=== PATIENT | female | born 1935 | race Caucasian/White ===

== ENCOUNTER 2018-04-29 14:57 | Inpatient (IN) | payer OTHER ==
[~2018-04-29] VITALS: Ht 170.2 cm; Wt 96.0 kg
--- NOTE | ~2018-04-29 | HC ---
[facility] [place] [address] CONSULTATION Name: WILLIAN BRIGGS MARCH Room #: 227-P ADM IN M.R.#: [id number] Admission: 04/29/18 Attend Phys: Zachary Salamanca MD Discharge: Date of : 35 Report #: [id number] THIS REPORT FOR: //name// CC: Mike Ruiz MD [facility] Yoni Geiger DO Dr. Vladimir Salamanca MD REASON FOR CONSULTATION: Thrombocytosis. HISTORY OF PRESENT ILLNESS: The patient is an 82-year-old female who says she has not been aware of high platelet counts before. I did have a chance to talk to Dr. Yoni Geiger. He also does not recall platelet count being high, but he will call me. He did mention that almost every time he sees her, she has inflammatory condition taking place. In look at the [facility] lab, her platelets have been abnormal every measure since July 2009 of greater than 487,000 except for once on 12/23/2011. More recently, the last several years they have been more in the range of 500-700. At this time on admit was 679,000 on the , then 581,000 on the and 467,000 on the . The patient denies any history of unusual bleeding or clotting. She did mention in asking, she had a heart attack at age 70, had stents placed. No family history of clots. The patient was admitted for gastroenteritis with several day onset of abdominal pain and maybe fever. It sounds like here she is also thought to have a urinary tract infection, possible pneumonia. PAST MEDICAL HISTORY: Notable for a diagnosis of hyperlipidemia, renal insufficiency, coronary artery disease with stents by the patient's report. Also, chronic back pain. Also, possible emphysema. Also, history of syncope recently. MEDICATIONS: Here in the hospital currently include duloxetine 60 mg daily, aspirin 81 mg daily, metoprolol 50 daily, atorvastatin 20 mg daily, ipratropium albuterol 3 mL respiratory q.i.d., levothyroxine 100 mcg daily, metronidazole q.8 hours IV, hydralazine p.r.n., heparin 5000 units b.i.d. subQ, hydrocodone p.r.n., morphine p.r.n., ciprofloxacin b.i.d. LABORATORY DATA: Here as mentioned has BUN of 23, creatinine of 1.4. Liver functions normal. White count currently 10.6, hemoglobin 12.8, MCV 96.7, platelet count 467. Differential had an ANC of 13,600. Vitamin B12 894. Vitamin D 25-hydroxy pending. UA had squamous cells, but also many bacteria. Microbiology so far is negative. RADIOLOGIC STUDIES: Include CT abdomen and pelvis showing surgical changes of appendectomy, cholecystectomy, hysterectomy and lumbar spine fusion, no evidence of bowel obstruction or free air. Mild prominence that may represent mild ileus [address] [address] CONSULTATION Name: WILLIAN BRIGGS MARCH Room #: 227-P [facility] IN M.R.#: [id number] Admission: 04/29/18 Attend Phys: Zachary Salamanca MD Discharge: Date of : 35 Report #: [id number] or enteritis and small colonic diverticula without inflammation. PHYSICAL EXAMINATION: VITAL SIGNS: Height is 5 feet 7 inches, 170.2 cm. Weight 211.7 pounds or 96 kilograms. Blood pressure is 209/96 this morning. O2 sat 93, respirations 18, pulse 90, temperature 99.4. MOOD: The patient is alert and pleasant. NEUROLOGIC: She may be a little bit hard of hearing. Speech and thought pattern appear to be normal. Face is symmetrical. LUNGS: Appear to have symmetric expansion, may be some soft rhonchi that clear after a cough. HEART: Appears regular rate. LYMPHATICS: No enlarged lymph nodes in the supraclavicular, cervical, axillary, inguinal region. ABDOMEN: Obese, slightly tender consistent with gastroenteritis. EXTREMITIES: Without clubbing, cyanosis. There is some trace edema. SKIN: Warm and intact. ASSESSMENT AND PLAN: 1. Thrombocytosis more likely reactive. We will check lab from Dr. Geiger's office. If that is also elevated without recent low or normal range, we will consider checking JAK2 mutation. The patient is on aspirin. 2. Gastroenteritis. Continue antibiotics and meds per others. 3. Hypothyroid, replace. 4. Coronary artery disease: Aspirin, metoprolol. 5. Hyperlipidemia: Atorvastatin. 6. Mood and back pain: Duloxetine and hydrocodone, p.r.n. morphine. We will follow. <ELECTRONICALLY SIGNED> By: Ranjan Villagran MD 05/03/18 0831 0840 1239 Ranjan Villagran MD /nt
[~2018-04-29 14:57] MED LIST: ACETAMINOPHEN-1 EAC1; ACETAMINOPHEN-1 EAC1 PO; ACETAMINOPHEN650 M5 PO; ADVAIR HFA 230M12 GM INH; ALBUTEROL INH INH; AMITRIPTYLINE H25 M2 PO; AMITRIPTYLINE H25 M3 PO; ASPIR 8181 MG PO; ASPIRIN325 PO; ATROVENT HFA14 GM; BIOTIN-D1 GM PO; BIOTIN1 GM; BIOTIN1 MG PO; BIOTIN2500 MCG PO; CALCIUM 600 +1 EAC1; CALCIUM 600 +1 EAC1 PO; CEFDINIR300 MG PO; CEFTIN 250 MG250 MG PO; CIPRO PO; CIPRO250 M1 PO; CITRATE OF MAG296 ML PO; CLARITIN10 M2 PO; COLACE100 MG PO; CYMBALTA60 MG PO; DEXILANT60 MG PO; GUIATUSS100 MG/5 M PO; HYDROCHLOROTHIA25 M2 PO; HYDROCODONE-APA1 TA1 PO; HYZAAR 100-12.1 EACH PO; IRBESARTAN300 MG PO; LEVOTHYROXIN0.075 MG PO; LEVOTHYROXINE0.05 MG PO; LOPRESSOR100 MG PO; LOSARTAN-HCTZ1 EAC2 PO; MEDROLDOSEPACK PO; METOCLOPRAMIDE 55 MG PO; MINIPRIN81 MG PO; MOBIC7.5 MG PO; MUCINEX TA600 MG/TA2 PO; NORCO 7.5-3251 EACH PO; NORVASC2.5 M1 PO; ONDANSETRON HCL4 M2 PO; PRAVACHOL20 MG PO; PREDNISONE 20 M20 M1; PRILOSEC 20 MG20 MG PO; PROTONIX40 M1 PO; PROXICAM PO; RANITIDINE PO; TOPROL XL100 MG PO; TOPROL XL50 MG PO; ULTRAM 50MG TAB50 MG PO; VENTOLIN HFA 1818 GM INH; VITAMINC500 PO; VITCB500GO PO
[2018-04-29 14:58] VITALS: BP 147/78
[2018-04-29 15:30] LABS: ABSOLUTE NEUTROPHILS 13.6 thou/uL (1.4-8.2); BASOPHILS 0.6 % (0.0-2.0); EOSINOPHILS 0.1 % (0.0-3.0); HEMATOCRIT 45.9 % (37.0-47.0); HEMOGLOBIN 15.4 gm/dL (12.0-15.0); LYMPHOCYTES 15.1 % (24.0-44.0); MCHC 33.5 g/dL (28.0-37.0); MCV 95.5 fL (80.0-100.0); MONOCYTES 7.4 % (1.0-8.0); PLATELET COUNT 679 thou/uL (150-400); POLYS 76.8 % (36.0-66.0); RBC 4.81 mil/uL (4.20-5.00); RDW 14.5 % (10.5-14.5); WBC 17.7 thou/uL (4.0-11.0)
[2018-04-29 15:39] LABS: CALCIUM 9.4 mg/dL (8.5-10.1); CREATININE 1.9 mg/dL (0.6-1.0); POTASSIUM 3.9 mmol/L (3.5-5.1)
[2018-04-29 15:53] LABS: ALBUMIN 4.1 g/dL (3.4-5.0); TOTAL BILIRUBIN 0.7 mg/dL (<0.1-1.0); TOTAL PROTEIN 7.7 g/dL (6.4-8.2)
[2018-04-29] MEDS ORDERED: FLONASE 0.05%50 MCG NASAL (17:52)
[2018-04-29] MEDS ORDERED: SYNTHROID50 MCG PO (17:55)
[2018-04-29] MEDS ORDERED: ASPIR 8181 MG PO (17:59)
[2018-04-29] MEDS ORDERED: BIOTIN1000 MCG PO (18:00)
[2018-04-29] MEDS ORDERED: DUONEB 2.5-0.5 M3 ML INH (18:02)
[2018-04-29 18:07] VITALS: BP 189/95
[2018-04-29 18:40] VITALS: BP 215/111
[2018-04-29 18:55] VITALS: BP 225/116
[2018-04-29 20:34] VITALS: BP 208/94
[2018-04-29 22:37] VITALS: BP 160/79
[2018-04-30 00:37] VITALS: BP 150/66
[2018-04-30 04:28] VITALS: BP 126/69
[2018-04-30 06:13] LABS: HEMATOCRIT 40.1 % (37.0-47.0); HEMOGLOBIN 13.5 gm/dL (12.0-15.0); MCH 32.1 pg (26.0-34.0); MCHC 33.6 g/dL (28.0-37.0); MCV 95.7 fL (80.0-100.0); RBC 4.19 mil/uL (4.20-5.00); RDW 14.4 % (10.5-14.5); WBC 16.1 thou/uL (4.0-11.0)
[2018-04-30 06:26] LABS: CALCIUM 8.6 mg/dL (8.5-10.1); CREATININE 1.6 mg/dL (0.6-1.0); POTASSIUM 3.9 mmol/L (3.5-5.1)
[2018-04-30 08:00] VITALS: BP 144/61
[2018-04-30 14:50] VITALS: BP 102/71
[2018-04-30 15:07] LABS: URINE BILIRUBIN NEGATIVE (Negative); URINE BLOOD 1+ (Negative); URINE CLARITY CLEAR; URINE COLOR YELLOW; URINE GLUCOSE-RANDOM* NEGATIVE (Negative); URINE KETONES TRACE (Negative); URINE PROTEIN (DIPSTICK) 1+ (Negative); URINE SPECIFIC GRAVITY 1.025 (1.005-1.035); URINE UROBILINOGEN 0.2 E.U./dl (0.2-1.0)
[2018-04-30 15:10] LABS: URINE LEUKOCYTES-REFLEX 2+ (Negative); URINE NITRITE-REFLEX POSITIVE (Negative)
[2018-04-30 15:15] LABS: CRYSTALS None Seen /LPF (None Seen); FINE GRANULAR CASTS 0-3 Few /LPF (None Seen); SQUAMOUS >10 Many /LPF (0-3); URINE RBC 3-10 Few /HPF (0-2); URINE WBC-REFLEX >25 Many /HPF (0-5)
[2018-04-30 15:56] VITALS: BP 128/39
[2018-04-30 20:45] VITALS: BP 138/70
[2018-05-01 05:36] VITALS: BP 202/95
[2018-05-01 05:52] LABS: HEMATOCRIT 39.2 % (37.0-47.0); HEMOGLOBIN 12.8 gm/dL (12.0-15.0); MCH 31.5 pg (26.0-34.0); MCHC 32.6 g/dL (28.0-37.0); MCV 96.7 fL (80.0-100.0); RBC 4.05 mil/uL (4.20-5.00); RDW 14.4 % (10.5-14.5); WBC 10.6 thou/uL (4.0-11.0)
[2018-05-01 05:57] LABS: CALCIUM 8.6 mg/dL (8.5-10.1); CREATININE 1.4 mg/dL (0.6-1.0); POTASSIUM 4.2 mmol/L (3.5-5.1)
[2018-05-01 08:00] VITALS: BP 200/80
[2018-05-01 15:35] VITALS: BP 139/85
[2018-05-01 20:09] VITALS: BP 207/88
[2018-05-02] VITALS (8 sets, daily range): BP systolic 117–209; BP diastolic 54–98
[2018-05-03 08:21] LABS: HEMATOCRIT 38.1 % (37.0-47.0); HEMOGLOBIN 12.9 gm/dL (12.0-15.0); MCH 32.1 pg (26.0-34.0); MCHC 33.8 g/dL (28.0-37.0); MCV 95.1 fL (80.0-100.0); RBC 4.01 mil/uL (4.20-5.00); RDW 14.4 % (10.5-14.5); WBC 10.9 thou/uL (4.0-11.0)
[2018-05-03 08:29] LABS: CALCIUM 8.6 mg/dL (8.5-10.1); CREATININE 1.2 mg/dL (0.6-1.0); POTASSIUM 3.7 mmol/L (3.5-5.1)
[2018-05-03 08:30] VITALS: BP 160/67
[2018-05-03 20:00] VITALS: BP 167/71
[2018-05-04 07:50] VITALS: BP 187/181
[2018-05-04 07:55] LABS: HEMATOCRIT 39.8 % (37.0-47.0); HEMOGLOBIN 13.3 gm/dL (12.0-15.0); MCH 31.5 pg (26.0-34.0); MCHC 33.3 g/dL (28.0-37.0); MCV 94.5 fL (80.0-100.0); RBC 4.21 mil/uL (4.20-5.00); RDW 14.4 % (10.5-14.5); WBC 15.9 thou/uL (4.0-11.0)
[2018-05-04 08:08] LABS: ALBUMIN 3.5 g/dL (3.4-5.0); CALCIUM 8.9 mg/dL (8.5-10.1); CREATININE 1.2 mg/dL (0.6-1.0); POTASSIUM 3.5 mmol/L (3.5-5.1); TOTAL BILIRUBIN 0.4 mg/dL (<0.1-1.0); TOTAL PROTEIN 6.4 g/dL (6.4-8.2)
[2018-05-04 20:00] VITALS: BP 153/68
[2018-05-05 07:35] VITALS: BP 169/83
[2018-05-05 20:15] VITALS: BP 168/80
[2018-05-05 21:53] VITALS: BP 184/85
[2018-05-05 23:02] VITALS: BP 130/72
[2018-05-06 08:14] VITALS: BP 134/73
[2018-05-06 10:44] VITALS: BP 134/73
[2018-05-06 20:17] VITALS: BP 124/73
[2018-05-07 07:55] VITALS: BP 171/77
[2018-05-07 07:58] VITALS: BP 171/77
[2018-05-07 12:40] LABS: HEMATOCRIT 38.7 % (37.0-47.0); HEMOGLOBIN 13.2 gm/dL (12.0-15.0); MCH 32.2 pg (26.0-34.0); MCHC 34.1 g/dL (28.0-37.0); MCV 94.3 fL (80.0-100.0); RBC 4.11 mil/uL (4.20-5.00); RDW 14.5 % (10.5-14.5); WBC 12.6 thou/uL (4.0-11.0)
[2018-05-07] MEDS ORDERED: MIRALAX17 GM PO (14:55)
[2018-05-07] MEDS ORDERED: FLAGYL500 MG PO (14:59)
[2018-05-07] MEDS ORDERED: CIPRO500 MG PO (14:59)
[2018-05-07] MEDS ORDERED: ZOFRAN ODT4 MG PO (15:00)
== END 2018-05-07 18:48 | disposition home health service (06) | DRG 871 ==
LOC: ER 14:57 → EROBS 17:15 → 4W 17:15 → SICU 05-02 16:08 → ENTRNSPT 05-07 18:25 → SICU 05-07 18:48
PROVIDERS: Emergency Medicine; Hospitalist; Internal Medicine Gastroenterology
DX: A41.9 Sepsis, unspecified organism (principal); N17.0 Acute kidney failure with tubular necrosis; N39.0 Urinary tract infection, site not specified; E46 Unspecified protein-calorie malnutrition; K52.9 Noninfective gastroenteritis and colitis, unspecified; Z88.8 Allergy status to other drugs, medicaments and biological substances; Z88.2 Allergy status to sulfonamides; G89.4 Chronic pain syndrome; I10 Essential (primary) hypertension; E78.5 Hyperlipidemia, unspecified; F11.90 Opioid use, unspecified, uncomplicated; D47.3 Essential (hemorrhagic) thrombocythemia; K21.9 Gastro-esophageal reflux disease without esophagitis; Z96.653 Presence of artificial knee joint, bilateral; E03.9 Hypothyroidism, unspecified; I25.10 Atherosclerotic heart disease of native coronary artery without angina pectoris; Z95.5 Presence of coronary angioplasty implant and graft; Z90.49 Acquired absence of other specified parts of digestive tract; Z87.01 Personal history of pneumonia (recurrent)
CPT/HCPCS: 10040; 15002

== ENCOUNTER 2018-05-19 08:49 | Inpatient (IN) | payer OTHER ==
[~2018-05-19] VITALS: Ht 170.2 cm; Wt 90.7 kg
--- NOTE | ~2018-05-19 | PATH ---
[facility] [place] [address] PATHOLOGY RPT PROCEDURE Name: WILLIAN BRIGGS MARCH Room #: 225-P DIS IN M.R.#: [id number] Admission: 05/19/18 Date of : 35 Discharge: 05/25/18 Report #: [id number] Path Case #: [id number] [facility] Accession Number: [id number] . 01 Material submitted: . BX OF GASTRITIS R/O H PYLORI . 01 Clinical history: . Pre-op diagnosis: N/V, history of duodenal ulcer Post-op diagnosis: Duodenal ulcer, gastritis R/O H. pylori . 02 Diagnosis: BX of gastritis, rule out H. pylori. - Mild chronic inactive gastritis with reactive change. - An H. pylori immunostain is negative (block A1; appropriately reactive control). . (MAP:[facility]; 05/27/2018) [facility]/05/27/2018 . 02 Electronically signed: . Waldo Rivas MD, Pathologist NPI- [id number] . 01 Gross description: . The specimen is received in formalin, labeled "Willian Ray, biopsy of gastritis, R/O H. pylori". Received are three segments pale mcconnell soft tissue ranging in size from 0.4 to 0.9 cm in maximum dimensions. The specimen is submitted entirely in cassette A1. ([facility]; 05/26/2018) QAC/QAC . 02 Pathologist provided ICD-10: K29.50 . 02 CPT . 066520, G48781 Performed at: 01 [facility] [address] [place] [id number] MD Margarito Vital MD Phone: [phone] Performed at: 02 [facility] [address] [id number] MD Itz Howard MD Phone: [phone]
--- NOTE | ~2018-05-19 | P ---
[facility] [place] [address] PROCEDURE REPORT Name: WILLIAN BRIGGS Room #: 225-P [facility] IN M.R.#: [id number] Admission: 05/19/18 Attend Phys: Carlos Lozano MD Discharge: 05/25/18 Date of : 35 Report #: [id number] THIS REPORT FOR: //name// CC: Yoni Lozano MD DATE OF SERVICE: 05/24/2018 PROCEDURE PERFORMED: Upper endoscopy with biopsies. HISTORY OF PRESENT ILLNESS: The patient is an 82-year-old female who was admitted with nausea, vomiting, abdominal pain, constipation. She does take narcotics on a regular basis. She has had a previous history of peptic ulcer disease. She has been on a PPI at home, but also on meloxicam as well as aspirin. Plan is for upper endoscopy. She denies any bleeding. DESCRIPTION OF PROCEDURE: The risks and benefits of the procedure were explained to the patient, those risks including, but not limited to bleeding, perforation, the risk of sedation. She understood these risks and gave informed consent. Sedation was given using propofol per anesthesia. Next, using a standard Olympus upper endoscope, the scope was placed in the patient's mouth and advanced under direct vision through the esophagus, stomach and into the second portion of the duodenum. The larynx was normal in appearance. The upper esophagus was normal. In the mid and distal esophagus, grade C erosive esophagitis was noted. No evidence of bleeding. There was a moderate to significant diffuse gastritis noted throughout the stomach. Biopsies were obtained. One of the biopsy sites continued to bleed. Therefore, a single Endo clip was placed. No further bleeding was noted. The pylorus was normal and patent. In the duodenal bulb, a 1.5 cm clean white-based ulcer was noted. No evidence of bleeding, no visible vessel. The first and second portions of the duodenum showed mild to moderate duodenitis. No evidence of bleeding. No other ulcers were noted. The scope was then withdrawn and the procedure terminated. The patient tolerated the procedure well. IMPRESSION: 1. Grade C erosive esophagitis. 2. Moderate to significant diffuse gastritis. 3. Duodenal bulb ulcer with duodenitis. RECOMMENDATIONS: 1. Await biopsy results. 2. We will change PPI therapy to b.i.d. We will add liquid Carafate at this time. 3. We will discontinue aspirin. [address] [address] PROCEDURE REPORT Name: WILLIAN BRIGGS MARCH Room #: 225-P DIS IN M.R.#: [id number] Admission: 05/19/18 Attend Phys: Carlos Lozano MD Discharge: 05/25/18 Date of : 35 Report #: [id number] Thank you for allowing me to participate in her care. <ELECTRONICALLY SIGNED> By: Ander Hatfield MD 05/26/18 1417 1112 1823 Ander Hatfield MD /rosalina
--- NOTE | ~2018-05-19 | EKG ---
[place] [address] [place] [address] ELECTROCARDIOGRAM REPORT Name: WILLIAN BRIGGS [id number] Admission: 05/19/18 Attend Phys: Discharge: Date of : 35 Report #: [id number] THIS REPORT FOR: //name// [facility] ED Test Date: 2018-05-19 Test Time: 09:35:02 Pat Name: WILLIAN BRIGGS Department: Room: Gender: F Rn First Assistant: violeta : 1935 Requested By: Reshma Zuluaga Order Number: [id number] MD: Mike Ruiz Measurements Intervals [place] Rate: 95 P: 67 ME: 166 QRS: 39 QRSD: 82 T: 68 QT: 368 QTc: 463 Interpretive Statements Sinus rhythm Atrial premature complex Abnormal R-wave progression, early transition Compared to ECG 05/03/2015 23:45:35 Atrial premature complex(es) now present Electronically Signed On 05-19-2018 10:07:24 CDT by Mike Ruiz [email or web address] <ELECTRONICALLY SIGNED> By: Mike Ruiz MD, [facility] 05/19/18 1007 0935 4 Mike Ruiz MD, FACC /EPI
--- NOTE | ~2018-05-19 | HC ---
[facility] [place] [address] CONSULTATION Name: WILLIAN BRIGGS Room #: 421-P ADM IN M.R.#: [id number] Admission: 05/19/18 Attend Phys: Carlos Lozano MD Discharge: Date of : 35 Report #: [id number] THIS REPORT FOR: //name// CC: Yoni Geiger DO Carlos Lozano MD REASON FOR CONSULTATION: Thrombocytosis. HISTORY OF PRESENT ILLNESS: The patient is an 82-year-old female who I had first met about a month ago when she was admitted for abdominal pain and diarrhea. During that time, she had had a platelet count of around between 500,000 and 700,000. We were not sure if this was reactive or not. Since that admission, had seen Dr. Yoni Geiger as an outpatient. The patient has had persistent platelet counts as an outpatient at 500,000-700,000 range for the past 2-3 years . We have been making arrangements to have a JAK2 mutation test as an outpatient. The patient not made it to the office. She is readmitted. We will have that drawn again today. The patient had been doing a little bit better over the last couple of days, but then maybe had a UTI, gone to a doctor, had an antibiotic and has now been having abdominal cramping and belly pain again. Her platelet counts at this time are 494,000. They were 680,000 yesterday. I discussed with the patient we will go ahead and ask for the JAK2 mutation test to be drawn. I do not see any signs of any thrombosis, clots or unusual bleeding on her lab tests or her exam or her imaging. She is on aspirin. At this time, I do not think it is urgent that we begin a cytoreductive agent, but we will check a JAK2 mutation. PAST MEDICAL HISTORY: Notable for the history of hyperlipidemia, renal insufficiency, coronary artery disease with stents per the patient's report, chronic back pain, possible emphysema, hypothyroidism. MEDICATIONS: At this time in the hospital currently include cholecalciferol 2000 units daily, aspirin 81 mg daily, duloxetine 60 mg daily, metoprolol 50 mg daily, lactobacillus acidophilus 1 cap daily, levothyroxine 100 mcg daily, pantoprazole 40 mg daily, fluticasone 2 sprays each naris b.i.d., atorvastatin calcium 10 mg at bedtime, heparin 5000 units b.i.d., docusate 100 mg b.i.d., MiraLax 17 grams b.i.d., insulin on a sliding scale, ipratropium and albuterol 3 mL respiratory therapy q.i.d., tramadol p.r.n., fentanyl p.r.n. PHYSICAL EXAMINATION: GENERAL: The patient appears her stated age. VITAL SIGNS: Height is 5 feet 7 inches, 170.2 cm; weight is 200 pounds or 90.72 kilograms. Blood pressure is 157/72 with O2 sat of 96%, respirations 18, pulse 100, temperature afebrile at 98.7. 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 NEUROLOGIC: Face appears symmetrical. She is moving extremities. Speech and thought pattern appear to be normal, though somewhat slow related to being tired. LUNGS: Appear to be clear with symmetric respiratory excursion without rhonchi, rales or wheezes. HEART: Regular rate. SKIN: Warm and dry. ABDOMEN: Slightly obese, minimally uncomfortable with the exam. LYMPHATICS: No enlarged lymph nodes in the supraclavicular, cervical, axillary or inguinal region. IMAGING: Recent CAT scan of abdomen and pelvis shows no acute findings, no hepatosplenomegaly or lymphadenopathy. ASSESSMENT AND PLAN: 1. Thrombocytosis, has been elevated above the 500 and in the 700 range occasionally for the last 2 years, both in and outpatient. We will arrange for JAK2 mutation. No sign of clotting or bleeding at this time. The patient is on aspirin 81 mg. 2. Abdominal pain and nausea. Defer to others. 3. Hypothyroid, replaced. 4. Coronary artery disease, per others. 5. Hyperlipidemia, statins. 6. Mood, Cymbalta. 7. Renal insufficiency. Watch medications. We will follow along and await JAK2 mutation test results. <ELECTRONICALLY SIGNED> By: Ranjan Villagran MD 05/21/18 0842 0718 0813 Ranjan Villagran MD /nt
[~2018-05-19 08:49] MED LIST changes: +BIOTIN1000 MCG PO; +CIPRO500 MG PO; +DUONEB 2.5-0.5 M3 ML INH; +FLAGYL500 MG PO; +FLONASE 0.05%50 MCG NASAL; +MIRALAX17 GM PO; +SYNTHROID50 MCG PO; +ZOFRAN ODT4 MG PO
[2018-05-19 08:50] VITALS: BP 160/98
[2018-05-19 09:12] LABS: ABSOLUTE NEUTROPHILS 9.9 thou/uL (1.4-8.2); BASOPHILS 1.1 % (0.0-2.0); EOSINOPHILS 0.7 % (0.0-3.0); HEMATOCRIT 47.5 % (37.0-47.0); HEMOGLOBIN 15.9 gm/dL (12.0-15.0); LYMPHOCYTES 23.5 % (24.0-44.0); MCH 31.9 pg (26.0-34.0); MCHC 33.6 g/dL (28.0-37.0); MCV 95.1 fL (80.0-100.0); MONOCYTES 7.2 % (1.0-8.0); PLATELET COUNT 680 thou/uL (150-400); POLYS 67.5 % (36.0-66.0); RBC 4.99 mil/uL (4.20-5.00); RDW 14.5 % (10.5-14.5); WBC 14.7 thou/uL (4.0-11.0)
[2018-05-19 09:25] LABS: ANION GAP 8 mmol/L (7-16); BUN 28 mg/dL (7-18); CALCIUM 9.5 mg/dL (8.5-10.1); CHLORIDE 98 mmol/L (98-107); CO2 28 mmol/L (21-32); CREATININE 1.6 mg/dL (0.6-1.0); GLUCOSE 177 mg/dL (74-106); POTASSIUM 3.9 mmol/L (3.5-5.1); SODIUM 134 mmol/L (136-145)
[2018-05-19 09:34] LABS: SGOT 43 U/L (15-37); SGPT 39 U/L (30-65); TOTAL BILIRUBIN 0.7 mg/dL (<0.1-1.0); TOTAL PROTEIN 7.5 g/dL (6.4-8.2); TROPONIN-I <0.06 ng/mL (<0.06)
[2018-05-19 10:35] LABS: URINE BILIRUBIN 1+ (Negative); URINE BLOOD 2+ (Negative); URINE CLARITY CLEAR; URINE GLUCOSE-RANDOM* NEGATIVE (Negative); URINE KETONES 1+ (Negative); URINE PROTEIN (DIPSTICK) 1+ (Negative); URINE SPECIFIC GRAVITY >= 1.030 (1.005-1.035)
[2018-05-19 10:45] LABS: ICTOTEST (BILI CONFIRMATORY) Positive (Negative); URINE COLOR DARK YELLOW; URINE LEUKOCYTES-REFLEX 1+ (Negative); URINE NITRITE-REFLEX POSITIVE (Negative)
[2018-05-19 11:21] LABS: SQUAMOUS 4-10 Moderate /LPF (0-3)
[2018-05-19 11:22] LABS: BACTERIA-REFLEX 1-9 Few /HPF (None Seen); CASTS None Seen /LPF (None Seen); CRYSTALS None Seen /LPF (None Seen); URINE RBC 3-10 Few /HPF (0-2)
[2018-05-19 11:36] VITALS: BP 155/85
[2018-05-19 12:01] VITALS: BP 182/90
[2018-05-19] MEDS ORDERED: MACROBID 100 M100 M1 PO (14:27)
[2018-05-19] MEDS ORDERED: HYDROCODON-ACE1 EAC8 PO (14:27)
[2018-05-19] MEDS ORDERED: MOBIC7.5 MG PO (14:28)
[2018-05-19] MEDS ORDERED: DICLOFENAC SOD100 GM TOP (14:28)
[2018-05-19] MEDS ORDERED: OMEPRAZOLE 20 M20 M1 PO (14:29)
[2018-05-19 19:30] VITALS: BP 148/88
[2018-05-20 00:06] LABS: GLYCOHEMOGLOBIN (HGB A1C) 6.1 % (4.8-5.6)
[2018-05-20 03:52] VITALS: BP 198/84
[2018-05-20 05:30] VITALS: BP 157/72
[2018-05-20 06:13] LABS: ABSOLUTE NEUTROPHILS 8.1 thou/uL (1.4-8.2); BASOPHILS 0.5 % (0.0-2.0); EOSINOPHILS 0.7 % (0.0-3.0); MCH 31.9 pg (26.0-34.0); MCHC 33.5 g/dL (28.0-37.0); MCV 95.2 fL (80.0-100.0); MONOCYTES 7.5 % (1.0-8.0); POLYS 71.3 % (36.0-66.0); RBC 4.31 mil/uL (4.20-5.00); RDW 14.5 % (10.5-14.5); WBC 11.3 thou/uL (4.0-11.0)
[2018-05-20 06:14] LABS: HEMOGLOBIN 13.8 gm/dL (12.0-15.0); PLATELET COUNT 494 thou/uL (150-400)
[2018-05-20 06:36] LABS: CREATININE 1.3 mg/dL (0.6-1.0); POTASSIUM 3.3 mmol/L (3.5-5.1)
[2018-05-20 07:45] VITALS: BP 170/73
[2018-05-20 10:31] VITALS: BP 174/76
[2018-05-20 15:20] VITALS: BP 148/78
[2018-05-20 20:35] VITALS: BP 129/56
[2018-05-21 05:23] VITALS: BP 165/85
[2018-05-21 05:33] LABS: HEMATOCRIT 40.9 % (37.0-47.0); HEMOGLOBIN 13.4 gm/dL (12.0-15.0); MCH 31.3 pg (26.0-34.0); MCHC 32.8 g/dL (28.0-37.0); MCV 95.5 fL (80.0-100.0); RBC 4.28 mil/uL (4.20-5.00); RDW 14.5 % (10.5-14.5); WBC 9.2 thou/uL (4.0-11.0)
[2018-05-21 05:39] LABS: CALCIUM 8.7 mg/dL (8.5-10.1); CREATININE 1.3 mg/dL (0.6-1.0); POTASSIUM 3.9 mmol/L (3.5-5.1)
[2018-05-21 07:52] VITALS: BP 177/74
[2018-05-21 15:10] VITALS: BP 161/67
[2018-05-21 19:44] VITALS: BP 142/65
[2018-05-22 05:14] VITALS: BP 166/84
[2018-05-22 05:58] LABS: CALCIUM 8.4 mg/dL (8.5-10.1); CREATININE 1.1 mg/dL (0.6-1.0); POTASSIUM 3.8 mmol/L (3.5-5.1)
[2018-05-22 07:20] VITALS: BP 187/89
[2018-05-22 15:33] VITALS: BP 124/50
[2018-05-22 20:00] VITALS: BP 137/68
[2018-05-23 03:39] VITALS: BP 146/80
[2018-05-23 07:57] VITALS: BP 149/77
[2018-05-23 15:29] VITALS: BP 149/77
[2018-05-23 16:50] VITALS: BP 154/71
[2018-05-23 20:44] VITALS: BP 149/66
[2018-05-24 05:51] VITALS: BP 133/58
[2018-05-24 20:00] VITALS: BP 147/73
[2018-05-25 07:25] VITALS: BP 166/72
[2018-05-25 09:01] VITALS: BP 166/72
[2018-05-25 10:51] LABS: HEMATOCRIT 39.5 % (37.0-47.0); HEMOGLOBIN 13.6 gm/dL (12.0-15.0); MCH 32.1 pg (26.0-34.0); MCHC 34.4 g/dL (28.0-37.0); MCV 93.2 fL (80.0-100.0); RBC 4.24 mil/uL (4.20-5.00); RDW 14.4 % (10.5-14.5); WBC 7.2 thou/uL (4.0-11.0)
[2018-05-25] MEDS ORDERED: AUGMENTIN 875-1 EACH PO (12:06)
== END 2018-05-25 16:01 | disposition home health service (06) | DRG 871 ==
LOC: ER 08:49 → 4E 10:36 → EROBS 10:36 → 4E 12:02 → SICU 05-24 16:02
PROVIDERS: Hospitalist; Internal Medicine Geriatric Medicine; Internal Medicine Hematology & Oncology; Nurse Practitioner; Nurse Practitioner Family
PROC: 0DB68ZX Excision of Stomach, Via Natural or Artificial Opening Endoscopic, Diagnostic (ICD-10-PCS; principal; 2018-05-24)
DX: A41.9 Sepsis, unspecified organism (principal); N17.0 Acute kidney failure with tubular necrosis; N39.0 Urinary tract infection, site not specified; K22.10 Ulcer of esophagus without bleeding; E78.00 Pure hypercholesterolemia, unspecified; M19.90 Unspecified osteoarthritis, unspecified site; Z96.653 Presence of artificial knee joint, bilateral; N18.9 Chronic kidney disease, unspecified; E86.0 Dehydration; K29.70 Gastritis, unspecified, without bleeding; K26.9 Duodenal ulcer, unspecified as acute or chronic, without hemorrhage or perforation; K29.80 Duodenitis without bleeding; E55.9 Vitamin D deficiency, unspecified; I16.0 Hypertensive urgency; D47.3 Essential (hemorrhagic) thrombocythemia; E78.5 Hyperlipidemia, unspecified; I25.10 Atherosclerotic heart disease of native coronary artery without angina pectoris; I12.9 Hypertensive chronic kidney disease with stage 1 through stage 4 chronic kidney disease, or unspecified chronic kidney disease; K21.9 Gastro-esophageal reflux disease without esophagitis; G89.29 Other chronic pain; M54.9 Dorsalgia, unspecified; J45.909 Unspecified asthma, uncomplicated; E03.9 Hypothyroidism, unspecified; F39 Unspecified mood [affective] disorder; Z90.49 Acquired absence of other specified parts of digestive tract; Z95.5 Presence of coronary angioplasty implant and graft; Z88.1 Allergy status to other antibiotic agents; Z88.2 Allergy status to sulfonamides; Z88.8 Allergy status to other drugs, medicaments and biological substances
CPT/HCPCS: 10183; 15002; 70005

== ENCOUNTER 2018-06-02 11:15 | Inpatient (IN) | payer OTHER ==
[~2018-06-02] VITALS: Ht 170.2 cm; Wt 90.7 kg
--- NOTE | ~2018-06-02 | EKG ---
[place] [address] [facility] [place] [address] ELECTROCARDIOGRAM REPORT Name: WILLIAN BRIGGS Room #: 170-5 ADM IN M.R.#: [id number] Admission: 06/02/18 Attend Phys: Nahun Forbes MD Discharge: Date of : 35 Report #: [id number] THIS REPORT FOR: //name// [facility] ED Test Date: 2018-06-02 Test Time: 11:20:30 Pat Name: WILLIAN BRIGGS Department: Room: Gender: F [employer]bin [employer] Finder: GREGORIO : 1935 Requested By: Tracy Alvarez Order Number: [id number] MD: Mike Ruiz Measurements Intervals [place] Rate: 99 P: 69 ND: 159 QRS: 40 QRSD: 93 T: 62 QT: 353 QTc: 453 Interpretive Statements Sinus tachycardia Atrial premature complex Compared to ECG 05/19/2018 09:35:02 Heart rate has increased Electronically Signed On 06-02-2018 15:38:02 CDT by Mike Ruiz [email or web address] <ELECTRONICALLY SIGNED> By: Mike Ruiz MD, [facility] 06/02/18 1538 1120 1120 Mike Ruiz MD, FACC /EPI
[~2018-06-02 11:15] MED LIST changes: +AUGMENTIN 875-1 EACH PO; +DICLOFENAC SOD100 GM TOP; +HYDROCODON-ACE1 EAC8 PO; +MACROBID 100 M100 M1 PO; +OMEPRAZOLE 20 M20 M1 PO
[2018-06-02 11:16] VITALS: BP 175/95
[2018-06-02 11:29] LABS: BASOPHILS 0.9 % (0.0-2.0); EOSINOPHILS 0.1 % (0.0-3.0); HEMATOCRIT 45.6 % (37.0-47.0); HEMOGLOBIN 15.4 gm/dL (12.0-15.0); LYMPHOCYTES 23.2 % (24.0-44.0); MCHC 33.8 g/dL (28.0-37.0); MCV 94.5 fL (80.0-100.0); MONOCYTES 5.5 % (1.0-8.0); PLATELET COUNT 626 thou/uL (150-400); POLYS 70.3 % (36.0-66.0); RBC 4.82 mil/uL (4.20-5.00); RDW 14.4 % (10.5-14.5); WBC 12.7 thou/uL (4.0-11.0)
[2018-06-02 11:40] LABS: ANION GAP 10 mmol/L (7-16); BUN 26 mg/dL (7-18); CALCIUM 9.5 mg/dL (8.5-10.1); CHLORIDE 99 mmol/L (98-107); CO2 26 mmol/L (21-32); CREATININE 1.3 mg/dL (0.6-1.0); GLUCOSE 179 mg/dL (74-106); POTASSIUM 4.6 mmol/L (3.5-5.1); SODIUM 135 mmol/L (136-145)
[2018-06-02 11:51] LABS: URINE BILIRUBIN NEGATIVE (Negative); URINE BLOOD NEGATIVE (Negative); URINE CLARITY CLEAR; URINE COLOR YELLOW; URINE GLUCOSE-RANDOM* NEGATIVE (Negative); URINE KETONES NEGATIVE (Negative); URINE LEUKOCYTES NEGATIVE (Negative); URINE NITRITE NEGATIVE (Negative); URINE PROTEIN (DIPSTICK) TRACE (Negative); URINE UROBILINOGEN 0.2 E.U./dl (0.2-1.0)
[2018-06-02 11:54] LABS: ALBUMIN 3.9 g/dL (3.4-5.0); DIRECT BILIRUBIN 0.1 mg/dL (<0.1-0.3); LIPASE 41 U/L (73-393); SGOT 54 U/L (15-37); SGPT 68 U/L (30-65); TOTAL BILIRUBIN 0.6 mg/dL (<0.1-1.0); TOTAL PROTEIN 7.6 g/dL (6.4-8.2); TROPONIN-I <0.06 ng/mL (<0.06)
[2018-06-02 16:29] VITALS: BP 160/74
[2018-06-02 21:16] VITALS: BP 186/100
[2018-06-02 21:27] VITALS: BP 188/67
[2018-06-03 00:11] VITALS: BP 196/93
[2018-06-03 03:40] VITALS: BP 169/87
[2018-06-03 05:27] LABS: CALCIUM 8.7 mg/dL (8.5-10.1); CREATININE 1.1 mg/dL (0.6-1.0); POTASSIUM 3.9 mmol/L (3.5-5.1)
[2018-06-03 05:57] LABS: HEMATOCRIT 38.1 % (37.0-47.0); MCH 31.7 pg (26.0-34.0); MCHC 33.6 g/dL (28.0-37.0); MCV 94.5 fL (80.0-100.0); RBC 4.03 mil/uL (4.20-5.00); RDW 14.3 % (10.5-14.5)
[2018-06-03 06:02] LABS: HEMOGLOBIN 12.8 gm/dL (12.0-15.0)
[2018-06-03 08:00] VITALS: BP 151/70
[2018-06-03 15:55] VITALS: BP 184/113
[2018-06-03 20:20] VITALS: BP 181/88
[2018-06-03 21:37] VITALS: BP 174/81
[2018-06-04 07:25] LABS: ABSOLUTE NEUTROPHILS 4.6 thou/uL (1.4-8.2); EOSINOPHILS 2.6 % (0.0-3.0); HEMATOCRIT 37.1 % (37.0-47.0); HEMOGLOBIN 12.7 gm/dL (12.0-15.0); LYMPHOCYTES 27.6 % (24.0-44.0); MCH 32.3 pg (26.0-34.0); MCHC 34.1 g/dL (28.0-37.0); MCV 94.6 fL (80.0-100.0); MONOCYTES 9.8 % (1.0-8.0); PLATELET COUNT 389 thou/uL (150-400); RBC 3.92 mil/uL (4.20-5.00); RDW 14.3 % (10.5-14.5); WBC 7.9 thou/uL (4.0-11.0)
[2018-06-04 07:35] VITALS: BP 168/90
[2018-06-04 07:38] LABS: CALCIUM 8.4 mg/dL (8.5-10.1); CREATININE 1.1 mg/dL (0.6-1.0)
[2018-06-04 11:08] LABS: GLYCOHEMOGLOBIN (HGB A1C) 6.2 % (4.8-5.6)
[2018-06-04 19:35] VITALS: BP 157/83
[2018-06-05 07:17] LABS: ABSOLUTE NEUTROPHILS 3.9 thou/uL (1.4-8.2); BASOPHILS 0.8 % (0.0-2.0); EOSINOPHILS 3.4 % (0.0-3.0); HEMATOCRIT 37.4 % (37.0-47.0); HEMOGLOBIN 12.6 gm/dL (12.0-15.0); LYMPHOCYTES 34.6 % (24.0-44.0); MCH 31.8 pg (26.0-34.0); MCHC 33.8 g/dL (28.0-37.0); MCV 94.1 fL (80.0-100.0); MONOCYTES 10.6 % (1.0-8.0); PLATELET COUNT 384 thou/uL (150-400); POLYS 50.6 % (36.0-66.0); RBC 3.98 mil/uL (4.20-5.00); RDW 13.9 % (10.5-14.5); WBC 7.7 thou/uL (4.0-11.0)
[2018-06-05 07:30] VITALS: BP 152/92
[2018-06-05 07:33] LABS: ALBUMIN 3.1 g/dL (3.4-5.0); CALCIUM 8.4 mg/dL (8.5-10.1); CREATININE 1.2 mg/dL (0.6-1.0); TOTAL BILIRUBIN 0.5 mg/dL (<0.1-1.0); TOTAL PROTEIN 5.5 g/dL (6.4-8.2)
[2018-06-05 11:36] VITALS: BP 152/92
[2018-06-05 14:32] VITALS: BP 152/92
[2018-06-05] MEDS ORDERED: PANTOPRAZOLE SO40 M1 PO (15:45)
[2018-06-05] MEDS ORDERED: REGLAN 10 MG TA10 MG PO (15:46)
== END 2018-06-05 18:45 | disposition home or self-care (01) | DRG 392 ==
LOC: ER 11:15 → EROBS 11:59 → 4W 11:59 → SICU 06-03 19:52 → ENTRNSPT 06-05 18:16 → SICU 06-05 18:45
PROVIDERS: Emergency Medicine; Hospitalist; Nurse Practitioner Family
DX: K31.84 Gastroparesis (principal); E44.0 Moderate protein-calorie malnutrition; K20.9 Esophagitis, unspecified; E78.00 Pure hypercholesterolemia, unspecified; M19.90 Unspecified osteoarthritis, unspecified site; Z96.653 Presence of artificial knee joint, bilateral; J45.909 Unspecified asthma, uncomplicated; I10 Essential (primary) hypertension; K21.9 Gastro-esophageal reflux disease without esophagitis; K29.70 Gastritis, unspecified, without bleeding; I16.0 Hypertensive urgency; E78.5 Hyperlipidemia, unspecified; E03.9 Hypothyroidism, unspecified; E86.0 Dehydration; D47.3 Essential (hemorrhagic) thrombocythemia; I25.10 Atherosclerotic heart disease of native coronary artery without angina pectoris; G89.29 Other chronic pain; M54.9 Dorsalgia, unspecified; R73.9 Hyperglycemia, unspecified; K59.09 Other constipation; Z87.11 Personal history of peptic ulcer disease; Z68.31 Body mass index [BMI] 31.0-31.9, adult; Z95.5 Presence of coronary angioplasty implant and graft; Z90.49 Acquired absence of other specified parts of digestive tract; Z88.1 Allergy status to other antibiotic agents; Z88.2 Allergy status to sulfonamides; Z88.8 Allergy status to other drugs, medicaments and biological substances; Z79.899 Other long term (current) drug therapy
CPT/HCPCS: 10040; 15000

== ENCOUNTER 2018-08-21 10:10 | Inpatient (IN) | payer OTHER ==
[~2018-08-21] VITALS: Ht 170.2 cm; Wt 91.1 kg
--- NOTE | ~2018-08-21 | HC ---
[facility] [place] [address] CONSULTATION Name: WILLIAN BRIGGS Room #: 212-P ADM IN M.R.#: [id number] Admission: 08/21/18 Attend Phys: Peterson Alexander MD Discharge: Date of : 35 Report #: [id number] THIS REPORT FOR: //name// CC: Peterson Geiger DATE OF SERVICE: 08/24/2018 HISTORY OF PRESENT ILLNESS: This is an 83-year-old female patient who was evaluated by me for headache. The history is not very clear. She said she used to have migraine headaches. They became better. About 16 months ago, she started having headache. She described has headache and in the occipital area. It is predominantly on the left side. It comes for a sharp second and then she has a residual headache, which is almost continuous. Although the history is not very clear from the record, she is pretty certain that these symptoms are going on for about 16 months. REVIEW OF SYSTEMS: She is actually admitted with nausea, vomiting. Her nausea and vomiting was intractable. She does have slightly raised platelet. She was functional before she came to the hospital. She said she was able to take care of her activities of daily living. She is admitted with bacteremia. She is being followed by ID for that. She had a knee replacement in the past. She had multiple back surgeries in the past. She had hysterectomy in the past. She had coronary artery stents put in. I carried out the 14-point review of system and this was a relevant 14-point review of system. She is not complaining of any ophthalmological, ENT, cardiac or respiratory symptoms. She had a pretty profound GI symptoms. She does appear to have symptoms. She has a pretty significant musculoskeletal history. She did have some constitutional symptom. She did not have any dermatological, hematological, psychiatric, throat, allergic symptom associated with present symptomatology. PAST MEDICAL HISTORY: Positive for migraine headaches, which used to become better with Imitrex. FAMILY HISTORY: Negative for early age stroke. SOCIAL HISTORY: As described above. She was living at home and she was functional before she came. PHYSICAL EXAMINATION: NEUROLOGY: Indicates she is alert, she is responsive, she can follow simple commands, she is oriented. Her speech, concentration, fund of knowledge and memory is at her baseline. Cranial nerve examination 2-12 is unremarkable. I could not look at the patient's fundus. She moves all 4 extremities. Strength, sensation, reflexes, and tone is symmetrical. I do not see any meningeal sign. NECK: She has no thyroid mass. [address] [address] CONSULTATION Name: WILLIAN BRIGGS MARCH Room #: 212-P [facility] IN M.R.#: [id number] Admission: 08/21/18 Attend Phys: Peterson Alexander MD Discharge: Date of : 35 Report #: [id number] EXTREMITIES: Pulses are somewhat difficult to feel. She has no edema, cyanosis or jaundice. LUNGS: She does not have any respiratory difficulty or any marked rhonchi on either side. CARDIAC: Appears unremarkable. VITAL SIGNS: Blood pressure is 139/68, respiration is 18, pulse is 50, and temperature is 97.6. Her GFR is low at 43. IMPRESSION: The patient's clinical presentation is consistent with occipital neuralgia. It is difficult to tell for sure about how long these symptoms are going on. The patient insists it is several months, but there is no documentation in that regard. RECOMMENDATION: 1. We would like to give her a trial with either gabapentin or Tegretol. 2. I would like to talk to you before we give that trial because there may be some anticholinergic effect with that. 3. She needs a CT or an MRI. MRI cannot be done today. We will get the CT done and probably get the MRI done tomorrow IF it does not show any acute changes. Her history is not very clear. It is not sure whether these symptoms are really going on for a few months, but she is pretty adamant that is what the case is, but since it is not certain, we will get a CAT scan done today and get an MRI done tomorrow. I discussed all of it with the patient in detail. I discussed her option in that regard and she wants to follow this plan. Thank you very much for this referral. <ELECTRONICALLY SIGNED> By: Tito Suazo MD 08/26/18 1659 1608 0242 Tito Suazo MD /nt
--- NOTE | ~2018-08-21 | HC ---
[facility] [place] [address] CONSULTATION Name: WILLIAN BRIGGS Room #: 212-P [facility] IN M.R.#: [id number] Admission: 08/21/18 Attend Phys: Peterson Alexander MD Discharge: Date of : 35 Report #: [id number] THIS REPORT FOR: //name// CC: Peterson Geiger DATE OF SERVICE: 08/22/2018 CONSULTATION REQUESTED BY: Peterson Alexander MD. REASON FOR CONSULTATION: Bacteremia. HISTORY OF PRESENT ILLNESS: An 83-year-old white woman who is admitted through the Emergency Room with a history of a stomach pain and emesis multiple times. The patient is known to have gastroparesis with significant delayed gastric emptying. The patient's urinalysis on admission compatible with urinary tract infections. Her workup included a couple of blood cultures and both of those showed gram-positive cocci. On account of that, an Infectious Disease opinion is requested. At present, the patient is mainly complaining of epigastric pain and nausea, which she blames to the breakfast she just ate since it was extremely good. PAST MEDICAL HISTORY: Pneumonia. Total knee replacement, both knees; status post cholecystectomy; appendectomy; hysterectomy and bilateral oophorectomy. History of coronary artery stents. Gastroesophageal reflux. DRUG ALLERGIES: PHENOTHIAZINES, SULFA, PROCHLORPERAZINE AND TETRACYCLINE. MEDICATIONS: She is on vancomycin 500 mg IV every 12 hours, Rocephin 1 gram IV daily, also receiving treatment with losartan, pantoprazole, enoxaparin, metoprolol, hydralazine p.r.n., hydrocodone p.r.n., ondansetron p.r.n., normal saline intravenously. SOCIAL HISTORY: See H and P, old records. FAMILY HISTORY: See H and P, old records. REVIEW OF SYSTEMS: As above and see H and P. PHYSICAL EXAMINATION: GENERAL: Well-developed, overweight woman, not toxic looking, afebrile since admission. VITAL SIGNS: Temperature 97.8, pulse 71, respirations 20, BP 169/70, height 5 feet 7 inches, weight 190 to 103 pounds. We had all those choices. HEENMT: Head normocephalic, atraumatic. Pupils reactive, question conjunctival icterus. Mouth, missing teeth, carious teeth. [address] [address] CONSULTATION Name: WILLIAN BRIGGS MARCH Room #: 212-P ADM IN M.R.#: [id number] Admission: 08/21/18 Attend Phys: Peterson Alexander MD Discharge: Date of : 35 Report #: [id number] NECK: Supple, no thyromegaly. BREASTS: Deferred. LUNGS: Clear to auscultation. HEART: S1, S2. No gallop or murmur. ABDOMEN: With multiple surgical scars, soft, tenderness in epigastric area. PELVIC AND RECTAL: Deferred. EXTREMITIES: Revealed surgical scars to both knees from previous knee replacement. NEUROLOGIC: Grossly within normal limits. LABORATORY DATA: Sodium 135, potassium 4.1, BUN 28, creatinine 1.3, glucose 99 today, was 201 yesterday, alkaline phosphatase 143. Liver enzymes otherwise normal. WBC elevated at 17,300 on admission and hemoglobin 15.3 g/dL with an elevated platelet count of 652,000 and the white blood cell count differential revealed 76% segmented neutrophils, 16% lymphocytes. The white blood cell count goes down to 11,600 today and the hemoglobin drops to 12.4 g/dL, so that is the platelet count that dropped to 479,000. TSH normal. Urinalysis revealed elevated specific gravity greater than 1.030, pH 6, 1+ protein, 2+ blood, positive nitrite. Microscopic exam of the urine revealed pyuria, bacteriuria. MICROBIOLOGY DATA: Two out of 2 blood cultures obtained yesterday with 2 different venous sticks revealed gram-positive cocci compatible with Staphylococcus. The urine culture is still pending. RADIOLOGY EVALUATION: CT scan of the abdomen and pelvis revealed status post cholecystectomy. The distal small bowel fluid filled without evidence of obstruction. Numerous colonic diverticula with no evidence of obstruction or abscess formation. The uterus and ovaries are surgically absent. ASSESSMENT: 1. Gram-positive cocci bacteremia, undetermined source. 2. Question urinary tract infection. 3. Leukocytosis, improved. 4. Dehydration, improved. 5. Azotemia, improved. 6. History of gastroparesis. 7. Coronary artery disease, status post coronary artery stenting. 8. Status post bilateral total knee replacement, cholecystectomy, appendectomy, history of salpingo-oophorectomy. SUGGESTIONS: Recommend while awaiting culture results, we will continue coverage with Rocephin for possible UTI and obviously, the vancomycin will cover a gram-positive cocci isolated in blood culture, have to entertain possibility of MRSA. We will obtain C-reactive protein, ESR, procalcitonin and repeat blood cultures [facility] [address] [place] [address] CONSULTATION Name: WILLIAN BRIGGS Room #: 212-P ADM IN M.R.#: [id number] Admission: 08/21/18 Attend Phys: Peterson Alexander MD Discharge: Date of : 35 Report #: [id number] Alexander, thank you for requesting my suggestion. <ELECTRONICALLY SIGNED> By: Alex Frey MD 08/23/18 0736 1147 56 Alex Frey MD /nt
--- NOTE | ~2018-08-21 | EKG ---
[address] [address] ELECTROCARDIOGRAM REPORT Name: WILLIAN BRIGGS MARCH Room #: 212-P ADM IN M.R.#: [id number] Admission: 08/21/18 Attend Phys: Peterson Alexander MD Discharge: Date of : 35 Report #: [id number] THIS REPORT FOR: //name// [facility] ED Test Date: 2018-08-21 Test Time: 10:30:04 Pat Name: WILLIAN BRIGGS Department: Room: 212 Gender: F Courtroom Deputy: MELIZA : 1935 Requested By: Don Gatica Order Number: [id number] MD: Isauro Frey Measurements Intervals [place] Rate: 100 P: 85 NV: 158 QRS: 60 QRSD: 80 T: 74 QT: 358 QTc: 462 Interpretive Statements Sinus tachycardia Multiform ventricular premature complexes Consider right atrial enlargement Abnormal R-wave progression, early transition Compared to ECG 06/02/2018 11:20:30 Ventricular premature complex(es) now present Atrial premature complex(es) no longer present Electronically Signed On 08-21-2018 17:02:40 CDT by Isauro Frey [email or web address] <ELECTRONICALLY SIGNED> By: Isauro Frey MD 08/21/18 1702 1030 1030 Isauro Frey MD /EPI
[~2018-08-21 10:10] MED LIST changes: +PANTOPRAZOLE SO40 M1 PO; +REGLAN 10 MG TA10 MG PO
[2018-08-21 10:18] VITALS: BP 170/27
[2018-08-21 10:49] LABS: ABSOLUTE NEUTROPHILS 13.1 thou/uL (1.4-8.2); HEMATOCRIT 43.9 % (37.0-47.0); HEMOGLOBIN 15.3 gm/dL (12.0-15.0); LYMPHOCYTES 16.9 % (24.0-44.0); MCH 32.5 pg (26.0-34.0); MCHC 34.9 g/dL (28.0-37.0); MCV 93.1 fL (80.0-100.0); MONOCYTES 6.1 % (1.0-8.0); PLATELET COUNT 652 thou/uL (150-400); RBC 4.72 mil/uL (4.20-5.00); WBC 17.3 thou/uL (4.0-11.0)
[2018-08-21 11:01] LABS: ANION GAP 15 mmol/L (7-16); BUN 29 mg/dL (7-18); CALCIUM 9.7 mg/dL (8.5-10.1); CHLORIDE 97 mmol/L (98-107); CO2 21 mmol/L (21-32); CREATININE 1.5 mg/dL (0.6-1.0); GLUCOSE 201 mg/dL (74-106); POTASSIUM 3.9 mmol/L (3.5-5.1); SODIUM 133 mmol/L (136-145)
[2018-08-21] MEDS ORDERED: MOBIC7.5 MG PO (11:07)
[2018-08-21] MEDS ORDERED: OMEPRAZOLE 20 M20 M1 PO (11:08)
[2018-08-21] MEDS ORDERED: VITAMIN B-12500 MCG PO (11:08)
[2018-08-21 11:10] LABS: LIPASE 51 U/L (73-393); SGOT 28 U/L (15-37); SGPT 31 U/L (30-65); TOTAL BILIRUBIN 0.9 mg/dL (<0.1-1.0); TOTAL PROTEIN 7.9 g/dL (6.4-8.2); TROPONIN-I <0.06 ng/mL (<0.06)
[2018-08-21 11:34] LABS: URINE BILIRUBIN NEGATIVE (Negative); URINE BLOOD 2+ (Negative); URINE CLARITY CLOUDY; URINE COLOR YELLOW; URINE GLUCOSE-RANDOM* NEGATIVE (Negative); URINE KETONES 1+ (Negative); URINE LEUKOCYTES-REFLEX 1+ (Negative); URINE NITRITE-REFLEX POSITIVE (Negative); URINE PROTEIN (DIPSTICK) 1+ (Negative); URINE SPECIFIC GRAVITY >= 1.030 (1.005-1.035); URINE UROBILINOGEN 0.2 E.U./dl (0.2-1.0)
[2018-08-21 11:49] LABS: BACTERIA-REFLEX >30 Many /HPF (None Seen)
[2018-08-21 11:50] LABS: CASTS None Seen /LPF (None Seen); CRYSTALS None Seen /LPF (None Seen); SQUAMOUS None Seen /LPF (0-3); URINE RBC 0-2 Rare /HPF (0-2); URINE WBC-REFLEX 6-15 Few /HPF (0-5)
[2018-08-21 12:27] VITALS: BP 188/88
[2018-08-21 13:13] VITALS: BP 168/82
[2018-08-21 15:28] VITALS: BP 184/92
[2018-08-21 19:15] VITALS: BP 140/50
[2018-08-22] VITALS (7 sets, daily range): BP systolic 129–182; BP diastolic 51–74
[2018-08-22 05:01] LABS: CALCIUM 8.8 mg/dL (8.5-10.1); CREATININE 1.3 mg/dL (0.6-1.0); POTASSIUM 4.1 mmol/L (3.5-5.1)
[2018-08-22 05:28] LABS: HEMATOCRIT 37.6 % (37.0-47.0); MCH 31.2 pg (26.0-34.0); MCV 94.8 fL (80.0-100.0); RBC 3.97 mil/uL (4.20-5.00); RDW 14.1 % (10.5-14.5); WBC 11.6 thou/uL (4.0-11.0)
[2018-08-22 05:29] LABS: HEMOGLOBIN 12.4 gm/dL (12.0-15.0)
[2018-08-23 05:11] VITALS: BP 171/64
[2018-08-23 07:06] LABS: ABSOLUTE NEUTROPHILS 6.3 thou/uL (1.4-8.2); BASOPHILS 1.4 % (0.0-2.0); EOSINOPHILS 2.7 % (0.0-3.0); HEMATOCRIT 40.7 % (37.0-47.0); HEMOGLOBIN 13.6 gm/dL (12.0-15.0); LYMPHOCYTES 33.6 % (24.0-44.0); MCH 31.8 pg (26.0-34.0); MCHC 33.4 g/dL (28.0-37.0); MCV 95.2 fL (80.0-100.0); MONOCYTES 8.9 % (1.0-8.0); POLYS 53.4 % (36.0-66.0); RBC 4.28 mil/uL (4.20-5.00); RDW 14.8 % (10.5-14.5); WBC 12.7 thou/uL (4.0-11.0)
[2018-08-23 07:07] LABS: PLATELET COUNT 393 thou/uL (150-400)
[2018-08-23 07:39] LABS: CALCIUM 8.5 mg/dL (8.5-10.1)
[2018-08-23 08:00] VITALS: BP 194/78
[2018-08-23 12:00] VITALS: BP 192/76
[2018-08-23 16:00] VITALS: BP 180/55
[2018-08-23 23:58] VITALS: BP 110/61
[2018-08-24] VITALS (7 sets, daily range): BP systolic 139–191; BP diastolic 67–85
[2018-08-24 05:49] LABS: ABSOLUTE NEUTROPHILS 5.6 thou/uL (1.4-8.2); BASOPHILS 0.8 % (0.0-2.0); EOSINOPHILS 3.2 % (0.0-3.0); HEMATOCRIT 36.2 % (37.0-47.0); LYMPHOCYTES 26.7 % (24.0-44.0); MCH 31.7 pg (26.0-34.0); MCHC 33.2 g/dL (28.0-37.0); MCV 95.4 fL (80.0-100.0); PLATELET COUNT 453 thou/uL (150-400); POLYS 61.3 % (36.0-66.0); RBC 3.79 mil/uL (4.20-5.00); RDW 14.3 % (10.5-14.5); WBC 9.2 thou/uL (4.0-11.0)
[2018-08-24 06:01] LABS: CALCIUM 9.3 mg/dL (8.5-10.1); CREATININE 1.2 mg/dL (0.6-1.0); POTASSIUM 4.6 mmol/L (3.5-5.1)
[2018-08-25 03:25] LABS: ABSOLUTE NEUTROPHILS 7.9 thou/uL (1.4-8.2); BASOPHILS 0.6 % (0.0-2.0); EOSINOPHILS 2.8 % (0.0-3.0); HEMATOCRIT 36.4 % (37.0-47.0); LYMPHOCYTES 20.1 % (24.0-44.0); MCH 31.7 pg (26.0-34.0); MCHC 32.9 g/dL (28.0-37.0); MCV 96.2 fL (80.0-100.0); PLATELET COUNT 452 thou/uL (150-400); POLYS 68.5 % (36.0-66.0); RBC 3.79 mil/uL (4.20-5.00); RDW 14.6 % (10.5-14.5); WBC 11.6 thou/uL (4.0-11.0)
[2018-08-25 03:31] LABS: CALCIUM 9.1 mg/dL (8.5-10.1); CREATININE 1.1 mg/dL (0.6-1.0); POTASSIUM 4.1 mmol/L (3.5-5.1)
[2018-08-25 04:49] VITALS: BP 213/92
[2018-08-25 05:12] VITALS: BP 174/72
[2018-08-25 08:04] VITALS: BP 189/87
[2018-08-25 13:10] VITALS: BP 190/83
[2018-08-25 15:14] VITALS: BP 156/78
[2018-08-25 19:53] VITALS: BP 224/95
[2018-08-26 00:02] VITALS: BP 170/76
[2018-08-26 04:52] VITALS: BP 191/75
[2018-08-26 07:30] VITALS: BP 155/64
[2018-08-26 10:53] VITALS: BP 163/68
[2018-08-26 15:41] VITALS: BP 140/60
[2018-08-26 19:45] VITALS: BP 156/57
[2018-08-27] VITALS (7 sets, daily range): BP systolic 127–157; BP diastolic 46–71
[2018-08-28 03:48] LABS: HEMATOCRIT 38.7 % (37.0-47.0); HEMOGLOBIN 13.1 gm/dL (12.0-15.0); MCH 32.3 pg (26.0-34.0); MCHC 33.8 g/dL (28.0-37.0); MCV 95.7 fL (80.0-100.0); RBC 4.04 mil/uL (4.20-5.00); RDW 14.8 % (10.5-14.5); WBC 10.6 thou/uL (4.0-11.0)
[2018-08-28 03:54] VITALS: BP 109/45
[2018-08-28 03:56] LABS: ALBUMIN 3.1 g/dL (3.4-5.0); CALCIUM 9.3 mg/dL (8.5-10.1); CREATININE 1.3 mg/dL (0.6-1.0); MAGNESIUM 2.2 mg/dL (1.8-2.4); POTASSIUM 4.1 mmol/L (3.5-5.1); TOTAL BILIRUBIN 0.3 mg/dL (<0.1-1.0); TOTAL PROTEIN 6.2 g/dL (6.4-8.2)
[2018-08-28 07:33] VITALS: BP 129/55
[2018-08-28 11:52] VITALS: BP 107/39
[2018-08-28 14:10] VITALS: BP 107/39
[2018-08-28] MEDS ORDERED: LINEZOLID600 MG PO (14:56)
[2018-08-28 15:06] VITALS: BP 107/39
== END 2018-08-28 16:33 | disposition home health service (06) | DRG 871 ==
LOC: ER 10:10 → EROBS 12:23 → 2N 12:23 → ENTRNSPT 08-28 16:24 → 2N 08-28 16:33
PROVIDERS: Hospitalist; Nurse Practitioner Family; Physician Assistant
DX: A41.9 Sepsis, unspecified organism (principal); N17.0 Acute kidney failure with tubular necrosis; N39.0 Urinary tract infection, site not specified; G89.29 Other chronic pain; M54.9 Dorsalgia, unspecified; E78.5 Hyperlipidemia, unspecified; I10 Essential (primary) hypertension; K21.9 Gastro-esophageal reflux disease without esophagitis; M19.90 Unspecified osteoarthritis, unspecified site; E78.00 Pure hypercholesterolemia, unspecified; Z96.653 Presence of artificial knee joint, bilateral; J45.909 Unspecified asthma, uncomplicated; E86.0 Dehydration; I25.10 Atherosclerotic heart disease of native coronary artery without angina pectoris; K31.84 Gastroparesis; E55.9 Vitamin D deficiency, unspecified; B96.20 Unspecified Escherichia coli [E. coli] as the cause of diseases classified elsewhere; G31.9 Degenerative disease of nervous system, unspecified; B95.8 Unspecified staphylococcus as the cause of diseases classified elsewhere; G43.909 Migraine, unspecified, not intractable, without status migrainosus; Z88.2 Allergy status to sulfonamides; Z90.49 Acquired absence of other specified parts of digestive tract; Z95.5 Presence of coronary angioplasty implant and graft; Z88.1 Allergy status to other antibiotic agents; Z88.8 Allergy status to other drugs, medicaments and biological substances; Z90.722 Acquired absence of ovaries, bilateral; Z79.82 Long term (current) use of aspirin; Z79.899 Other long term (current) drug therapy; Z23 Encounter for immunization
CPT/HCPCS: 10081

== ENCOUNTER 2018-09-10 12:01 | Inpatient (IN) | payer OTHER ==
[~2018-09-10] VITALS: Ht 170.2 cm; Wt 83.6 kg
[2018-09-10] VITALS (8 sets, daily range): BP systolic 131–213; BP diastolic 59–130
--- NOTE | ~2018-09-10 | EKG ---
[address] [address] ELECTROCARDIOGRAM REPORT Name: WILLIAN BRIGGS Room #: 217-P ADM IN M.R.#: [id number] Admission: 09/10/18 Attend Phys: Nahun Forbes MD Discharge: Date of : 35 Report #: [id number] THIS REPORT FOR: //name// [facility] ED Test Date: 2018-09-10 Test Time: 12:12:59 Pat Name: WILLIAN BRIGGS Department: Room: 217 Gender: F Whizzer Operator: GREGORIO : 1935 Requested By: Miki Quiroga Order Number: [id number] MD: Mike Ruiz Measurements Intervals [place] Rate: 115 P: -71 MN: 106 QRS: 62 QRSD: 82 T: 72 QT: 349 QTc: 483 Interpretive Statements Ectopic atrial tachycardia, unifocal Multiple premature complexes, vent & supraven Borderline prolonged QT interval Compared to ECG 08/21/2018 10:30:04 Ectopic atrial tachycardia has replaced sinus tachycardia Electronically Signed On 09-10-2018 16:32:13 CDT by Mike Ruiz [email or web address] <ELECTRONICALLY SIGNED> By: Mike Ruiz MD, FACC 09/10/18 1632 121 121 Mike Ruiz MD, FAC /EPI
--- NOTE | ~2018-09-10 | EEG ---
[facility] [place] [address] ELECTROENCEPHALOGRAM Name: WILLIAN BRIGGS Room #: 217-P [facility] IN M.R.#: [id number] Admission: 09/10/18 Attend Phys: Nahun Forbes MD Discharge: 09/16/18 Date of : 35 Report #: [id number] THIS REPORT FOR: //name// CC: Yoni Forbes DATE OF SERVICE: 09/11/2018 This patient is being evaluated for altered mental status. EEG was done by placing the electrode by standard 10-20 system of electrode placement. Both referential and sequential montages were used for recording. The patient was very uncooperative and lot of artifact is present. Background activity appeared to be about 6-7 Hz and 30 microvolt. Photic stimulation is unremarkable. IMPRESSION: This is suboptimal EEG because the patient did not cooperate and a lot of artifact is present. EEG is slow and poorly formed. That is a nonspecific finding which can occur with encephalopathy, effect of psychotropic medication, dementia, etc. No active epileptiform activity is present. Thank you very much for this referral. <ELECTRONICALLY SIGNED> By: Tito Suazo MD 09/19/181910 41 52 Tito Suazo MD /nt
--- NOTE | ~2018-09-10 | HC ---
[facility] [place] [address] CONSULTATION Name: WILLIAN BRIGGS Room #: 217-P ADM IN M.R.#: [id number] Admission: 09/10/18 Attend Phys: Nahun Forbes MD Discharge: Date of : 35 Report #: [id number] THIS REPORT FOR: //name// CC: Yoni Forbes DATE OF SERVICE: 09/11/2018 INFECTIOUS DISEASE CONSULTATION ATTENDING PHYSICIAN: Dr. Forbes. REASON FOR CONSULTATION: Altered mental status, question meningitis. HISTORY OF PRESENT ILLNESS: An 83-year-old white woman recently discharged from [facility] and readmitted through the Emergency Room with altered mental status, extreme weakness and multiple metabolic abnormalities, possibility of meningitis entertained, spinal tap performed and this revealed no meningitis, but possible traumatic tap. The Rocephin is discontinued today. She remains on vancomycin since during previous hospitalizations. She had coagulase-negative Staphylococcus bacteremia. Echocardiogram revealed no significant abnormalities. The patient remains confused and unable to give any information, scheduled for MRI of the brain; however, CT scan of the brain has revealed microvascular disease, brain atrophy. The patient does not know where she is at. She is somnolent. She does not recognize me and obviously, she does not remember my name. PAST MEDICAL HISTORY: Left ovarian disease, tonsillectomy, bilateral total knee replacement, back surgery, episode of ischemic colitis, appendectomy, cholecystectomy, coronary artery disease, cardiac catheterization, coronary artery stenting, gastroesophageal reflux, previous question asymptomatic bacteriuria with E. coli and coagulase negative Staphylococcus bacteremia lobe (low grade). DRUG ALLERGIES: PHENOTHIAZINE, SULFA DRUGS, PROCHLORPERAZINE, TETRACYCLINE. MEDICATIONS: Rocephin discontinued, remains on vancomycin 500 mg IV every 12 hours after loading dose. She is receiving sodium bicarbonate orally, pantoprazole, duloxetine, cyanocobalamin, aspirin, metoprolol, losartan, levothyroxine, normal saline at 1000 mL every 20 hours, Atrovent and albuterol inhalation treatments, p.r.n. ondansetron, acetaminophen. SOCIAL HISTORY: See H and P, old records. FAMILY HISTORY: See H and P, old records. [facility] [address] [place] [address] CONSULTATION Name: WILLIAN BRIGGS MARCH Room #: 217-P [facility] IN .R.#: [id number] Admission: 09/10/18 Attend Phys: Nahun Forbes MD Discharge: Date of : 35 Report #: [id number] REVIEW OF SYSTEMS: Unable to obtain. PHYSICAL EXAMINATION: GENERAL: Well-developed, overweight woman, somnolent, arousable, but unable to give any information. VITAL SIGNS: Temperature maximum 99.4, pulse 112, respirations 18, BP 187/112, 124/63, O2 saturation 92% on room air. HEENMT: Pupils reactive. Mouth: Dry mucous membranes. NECK: Supple. LUNGS: Clear. HEART: S1, S2. No gallop or murmur. ABDOMEN: Soft, no masses or megaly. Surgical scar, midline. No abnormal tenderness. PELVIC AND RECTAL: Deferred. EXTREMITIES: No clubbing or cyanosis. Surgical scar of total knee replacement. NEUROLOGIC: Unable to evaluate. LABORATORY DATA: CSF revealed 472 rbc's, remainder normal. Glucose 83 with simultaneous blood glucose of 129. She has evidence of hyponatremia of 120 and 130 millimoles per liter. Hypokalemia , 3.2 mEq per liter, CO2 of 20, BUN and creatinine has decreased to 21 and 1.3 after hydration. Amylase and lipase normal. Magnesium low at 1.6. The urine screen positive for opiates. WBC 15,500 and 17,600 today, hemoglobin dropped from 15.8 to 14 g/dL at discharge time. Last time was 13.1 g/dL indicating hemoconcentration. White blood cell count differential revealed 72% segmented neutrophils, 18% lymphocytes. TSH mildly elevated. The prolactin level is normal. The procalcitonin level is normal. I ordered C-reactive protein and ESR, those are pending. The urinalysis revealed some microscopic bacteriuria and pyuria. Cultures are pending. MICROBIOLOGY DATA: Blood cultures and urine culture were obtained and those are pending at the time of this dictation. RADIOLOGY EVALUATION: A CT scan of the head revealed chronic microvascular disease, ischemic changes. CT abdomen and pelvis negative. Chest x-ray, no infiltrates. ASSESSMENT: 1. Altered mental status and weakness, question etiology. 2. Hyponatremia -- hypomagnesemia -- metabolic acidosis -- dehydration -- leukocytosis -- hemoconcentration (suspect PROPERTY AND EQUIPMENT CLERK alteration, should improve when this is corrected). 3. No evidence of meningitis. 4. 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 5. Recent Staphylococcus epidermidis bacteremia, undetermined source, possibly [facility] [address] [place] [address] CONSULTATION Name: BRIGITTEWILLIANRADHA NAJERA Room #: 217-P [facility] IN M.R.#: [id number] Admission: 09/10/18 Attend Phys: Nahun Forbes MD Discharge: Date of : 35 Report #: [id number]. SUGGESTIONS: Recommend repeat ESR, CRP and procalcitonin. If those are negative, doubt very much infection and await culture results. If those are negative, discontinue vancomycin. We will proceed to stop Rocephin today since the patient has no meningitis. Discussed situation with Dr. Forbes. Dr. Forbes, thank you for requesting my suggestions. <ELECTRONICALLY SIGNED> By: Alex Frey MD 09/12/18 1126 1220 0346 Alex Frey MD /nt
--- NOTE | ~2018-09-10 | 2DMMODE ---
[facility] [address] [place] [address] 2 D/M-MODE ECHOCARDIOGRAM Name: WILLIAN BRIGGS MARCH Room #: 217-P ADM IN M.R.#: [id number] Admission: 09/10/18 Attend Phys: Nahun Forbes MD Discharge: Date of : 35 Date of Service: 09/11/18 1010 Report #: [id number] THIS REPORT FOR: //name// APPROVED REPORT Study performed: 09/11/2018 09:10:08 EXAM: Comprehensive 2D, Doppler, and color-flow Echocardiogram Patient Location: Bedside Room #: 217 Status: routine BSA: 2.01 HR: 93 bpm BP: 143/49 mmHg Rhythm: NSR Other Information Study Quality: Adequate Indications Hypertension/HDD Bacteremia R^O Endocarditis 2D Dimensions RVDd: 26.29 mm IVSd: 13.57 (7-11mm) LVOT Diam: 17.66 (18-24mm) LVDd: 26.21 mm PWd: 14.30 (7-11mm) Ascending Ao: 29.43 (22-36mm) LVDs: 16.48 (25-40mm) Aortic Root: 27.18 mm Volumes Left Atrial Volume (Systole) Single Plane 4CH: 22.93 mL Single Plane 2CH: 38.64 mL LA ESV Index: 17.00 mL/m2 Aortic Valve AoV Peak Jimenez.: 1.20 m/s AO Peak Gr.: 5.74 mmHg LVOT Max P.74 mmHg LVOT Max V: 1.20 m/s SAMSON Vmax: 2.45 cm2 Mitral Valve E/A Ratio: 0.5 MV Decel. Time: 295.63 ms [facility] [address] [place] [address] 2 D/M-MODE ECHOCARDIOGRAM Name: WILLIAN BRIGGS Room #: 217-P [facility] IN [facility].#: [id number] Admission: 09/10/18 Attend Phys: Nahun Forbes MD Discharge: Date of : 35 Date of Service: 09/11/18 1010 Report #: [id number] E Max Jimenez.: 0.70 m/s MV A Jimenez.: 1.34 m/s MV PHT: 85.73 ms IVRT: 124.57 ms Pulmonary Valve PV Peak Jimenez.: 0.80 m/s PV Peak Gr.: 2.56 mmHg Pulmonary Vein P Vein S: 0.58 m/s P Vein A: 0.27 m/s P Vein D: 0.31 m/s P Vein A Dur.: 152.2 msec P Vein S/D Ratio: 1.87 Tricuspid Valve TR Peak Jimenez.: 2.76 m/s TR Peak Gr.: 30.44 mmHg PA Pressure: 30.00 mmHg Left Ventricle The left ventricle is normal size. There is normal LV segmental wall motion. Mild to moderate concentric left ventricular hypertrophy. Left ventricular systolic function is hyperdynamic. LVEF is 65-70%. Grade I - abnormal relaxation pattern. Right Ventricle The right ventricle is normal size. The right ventricular systolic function is normal. Atria The left atrium size is normal. The right atrium size is normal. Aortic Valve The aortic valve is mildly sclerotic Mild aortic regurgitation. There is no aortic valvular stenosis. Mitral Valve The mitral valve is normal in structure. There is no mitral valve regurgitation noted. No evidence of mitral valve stenosis. Tricuspid Valve The tricuspid valve is normal in structure. There is trace to mild tricuspid regurgitation. Estimated PAP 30 mmHg plus the right atrial pressure. There is mild pulmonary hypertension. Pulmonic Valve [address] [address] 2 D/M-MODE ECHOCARDIOGRAM Name: WILLIAN BRIGGS MARCH Room #: 217-P [facility] IN M.R.#: [id number] Admission: 09/10/18 Attend Phys: Nahun Forbes MD Discharge: Date of : 35 Date of Service: 09/11/18 1010 Report #: [id number] The pulmonary valve is normal in structure. There is no pulmonic valvular regurgitation. Great Vessels The aortic root is normal in size. The inferior vena cava is not well visualized. Pericardium There is no pericardial effusion. <Conclusion> Left ventricular systolic function is hyperdynamic. There is normal LV segmental wall motion. Mild LVH LVEF is 65-70%. Mild diastolic dysfunction The aortic valve is mildly sclerotic. Mild aortic regurgitation, no stenosis The mitral valve is normal in structure. No mitral valve regurgitation There is trace to mild tricuspid regurgitation. Estimated pulmonary artery pressure of 30 mmHg plus the right atrial pressure. There is no pericardial effusion. <ELECTRONICALLY SIGNED> By: Mike Ruiz MD, FACC 09/11/18 1010 1010 1010 Mike Ruiz MD, FACC /INF
--- NOTE | ~2018-09-10 | HC ---
[facility] [place] [address] CONSULTATION Name: WILLIAN BRIGGS Room #: 217-P [facility] IN M.R.#: [id number] Admission: 09/10/18 Attend Phys: Nahun Forbes MD Discharge: 09/16/18 Date of : 35 Report #: [id number] THIS REPORT FOR: //name// CC: Yoni Forbes DATE OF SERVICE: 09/11/2018 HISTORY OF PRESENT ILLNESS: This is an 83-year-old female patient who was evaluated by me for any neurological etiology for altered mental status. I reviewed the patient's records in the computer. She was in this hospital and she had indicated that she has a headache, which is longstanding. It was of several months' duration. After she was dismissed from the hospital, it looks like the patient is not doing well. She was getting up only to go to the bathroom. Nurses' says that her mental status fluctuates. Sometime she is able to respond and sometime she is not able to respond very well. When I examined her, she is not responsive at all. We have done an MRI of the brain without contrast on her the last time she was here and it did not show any acute changes. From the record, it looks like they did another MRI of the brain with and without contrast on her during this admission. That did not show any abnormality either. He did have MRA of the venous sinuses which showed asymmetry, but thought it may be related to congenital variation. She is pretty hyponatremic at the moment. She has a history of high platelet. A 14-point review of system was carried out in this patient. She has some headache. Her white count is still up. She has prior history of headache. Headache did not look like temporal arteritis headache and her last sed rate was only 3. REVIEW OF SYSTEMS: A 14-point review of system was attempted, but it is very difficult to do because the patient does not cooperate very well. PAST MEDICAL HISTORY: Positive for headache which is longstanding. FAMILY HISTORY: Negative for any congenital headache. SOCIAL HISTORY: The patient lives with her who was here when I talked to the patient. The patient's examination is pretty limited. She does not follow any simple commands from me. She makes some incomprehensible sounds. Cranial nerve examination was attempted, but the patient was not able to cooperate. She is not able to cooperate with the fundus examination. No meningeal sign. She moves all 4 extremities. She could not understand the instruction for cerebellar sign. Cardiac examination appears unremarkable. Respiratory examination does not appear to be showing any respiratory difficulty. No rhonchi was noticed. Blood pressure is 124/63, respiration is [facility] [address] [place] [address] CONSULTATION Name: WILLIAN BRGIGS MARCH Room #: 217-P [facility] IN M.R.#: [id number] Admission: 09/10/18 Attend Phys: Nahun Forbes MD Discharge: 09/16/18 Date of : 35 Report #: [id number], pulse is 92, temperature is 97.3. LABORATORY DATA: White count is 17.6, platelet count is 531. She still has sodium of only 130, potassium is 3.2. GFR is only 39. Hemoglobin A1c the last time was 6.2. Magnesium is low at 1.6. Her last vitamin D was 5.8. TSH is 9.0. Vitamin B12 was normal. She did have a CT scan of the head and MRI and they were reviewed and they do not show any acute changes. 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 We will rule out any seizures associated with this. Headache is chronic, but sometime may become worst after spinal tap because post-spinal headache will also produce similar symptoms. RECOMMENDATIONS: 1. Management of systemic problems. 2. We will suggest addressing vitamin D deficiency. 3. I will probably repeat the MRV to make sure the finding described left side was congenital and not intracranial sinus thrombosis, especially in light of the fact that this patient has high platelet and that does predispose the patient for thrombus formation. All of it was discussed with the family. Dr. Olvera is on-call from tomorrow onward and he will be seeing the patient from tomorrow onward. <ELECTRONICALLY SIGNED> By: Tito Suazo MD 09/19/18 1910 1404 0018 Tito Suazo MD /nt
[~2018-09-10 12:01] MED LIST changes: +LINEZOLID600 MG PO; +VITAMIN B-12500 MCG PO
[2018-09-10 12:22] LABS: URINE BILIRUBIN NEGATIVE (Negative); URINE BLOOD 1+ (Negative); URINE CLARITY CLOUDY; URINE COLOR YELLOW; URINE GLUCOSE-RANDOM* NEGATIVE (Negative); URINE KETONES NEGATIVE (Negative); URINE LEUKOCYTES-REFLEX 2+ (Negative); URINE NITRITE-REFLEX NEGATIVE (Negative); URINE PROTEIN (DIPSTICK) 1+ (Negative); URINE UROBILINOGEN 0.2 E.U./dl (0.2-1.0)
[2018-09-10 12:31] LABS: AMP/METHAMP Negative (Negative); BARBITURATES Negative (Negative); BENZODIAZEPINES Negative (Negative); COCAINE Negative (Negative); METHADONE Negative (Negative); OPIATES POSITIVE (Negative); PCP Negative (Negative)
[2018-09-10 12:41] LABS: ABSOLUTE NEUTROPHILS 11.2 thou/uL (1.4-8.2); BASOPHILS 0.6 % (0.0-2.0); EOSINOPHILS 0.6 % (0.0-3.0); HEMATOCRIT 46.5 % (37.0-47.0); HEMOGLOBIN 15.8 gm/dL (12.0-15.0); LYMPHOCYTES 18.2 % (24.0-44.0); MCHC 33.9 g/dL (28.0-37.0); MCV 94.2 fL (80.0-100.0); MONOCYTES 8.2 % (1.0-8.0); PLATELET COUNT 620 thou/uL (150-400); POLYS 72.4 % (36.0-66.0); RBC 4.94 mil/uL (4.20-5.00); RDW 14.4 % (10.5-14.5); WBC 15.5 thou/uL (4.0-11.0)
[2018-09-10 12:49] LABS: BACTERIA-REFLEX >30 Many /HPF (None Seen); CASTS None Seen /LPF (None Seen); CRYSTALS None Seen /LPF (None Seen); SQUAMOUS 0-3 Few /LPF (0-3); URINE RBC 0-2 Rare /HPF (0-2); URINE WBC-REFLEX >25 Many /HPF (0-5)
[2018-09-10 12:50] LABS: ANION GAP 11 mmol/L (7-16); BUN 28 mg/dL (7-18); CALCIUM 9.7 mg/dL (8.5-10.1); CHLORIDE 93 mmol/L (98-107); CO2 25 mmol/L (21-32); CREATININE 1.5 mg/dL (0.6-1.0); GLUCOSE 165 mg/dL (74-106); SODIUM 129 mmol/L (136-145)
[2018-09-10 12:58] LABS: ALBUMIN 3.9 g/dL (3.4-5.0); MAGNESIUM 1.7 mg/dL (1.8-2.4); SGOT 29 U/L (15-37); SGPT 34 U/L (30-65); TOTAL PROTEIN 7.6 g/dL (6.4-8.2); TROPONIN-I <0.06 ng/mL (<0.06)
[2018-09-10] MEDS ORDERED: ONDANSETRON HCL4 M2 PO (13:59)
[2018-09-10] MEDS ORDERED: CYMBALTA60 MG PO (13:59)
[2018-09-10] MEDS ORDERED: PROTONIX40 M1 PO (14:01)
[2018-09-10] MEDS ORDERED: SYNTHROID100 MC1 PO (14:01)
[2018-09-10] MEDS ORDERED: ZAROXOLYN 5MG TA5 MG PO (14:01)
[2018-09-10 19:11] LABS: CSF GLUCOSE 83 mg/dL (40-70); CSF PROTEIN 34 mg/dL (15-45)
[2018-09-10 20:21] LABS: CSF CLARITY HAZY; CSF RBC 472 /mm3; CSF WBC 0 /mm3 (0-10); VOLUME 13 ml
[2018-09-10 22:48] LABS: CSF COLOR SLIGHT PINK
[2018-09-10 23:33] LABS: AMYLASE 16 U/L (25-115); LIPASE 48 U/L (73-393)
[2018-09-11 03:49] LABS: CALCIUM 8.8 mg/dL (8.5-10.1); CREATININE 1.3 mg/dL (0.6-1.0); POTASSIUM 3.2 mmol/L (3.5-5.1)
[2018-09-11 03:53] LABS: HEMATOCRIT 40.4 % (37.0-47.0); MCH 32.5 pg (26.0-34.0); MCHC 34.7 g/dL (28.0-37.0); MCV 93.8 fL (80.0-100.0); RBC 4.31 mil/uL (4.20-5.00); RDW 14.1 % (10.5-14.5); WBC 17.6 thou/uL (4.0-11.0)
[2018-09-11 04:40] VITALS: BP 143/49
[2018-09-11 08:29] VITALS: BP 124/63
[2018-09-11 08:56] LABS: HSV PCR SOURCE CSF
[2018-09-11 13:55] VITALS: BP 190/70
[2018-09-11 17:31] VITALS: BP 206/103
[2018-09-11 20:01] VITALS: BP 186/80
[2018-09-12 04:30] VITALS: BP 187/78
[2018-09-12 07:42] VITALS: BP 156/74
[2018-09-12 08:25] LABS: ABSOLUTE NEUTROPHILS 14.2 thou/uL (1.4-8.2); BASOPHILS 0.2 % (0.0-2.0); HEMATOCRIT 38.9 % (37.0-47.0); HEMOGLOBIN 13.3 gm/dL (12.0-15.0); LYMPHOCYTES 10.3 % (24.0-44.0); MCH 32.2 pg (26.0-34.0); MCHC 34.1 g/dL (28.0-37.0); MCV 94.3 fL (80.0-100.0); MONOCYTES 9.1 % (1.0-8.0); PLATELET COUNT 463 thou/uL (150-400); POLYS 80.4 % (36.0-66.0); RBC 4.12 mil/uL (4.20-5.00); RDW 14.7 % (10.5-14.5); WBC 17.6 thou/uL (4.0-11.0)
[2018-09-12 08:32] LABS: CALCIUM 8.8 mg/dL (8.5-10.1); CREATININE 1.5 mg/dL (0.6-1.0); POTASSIUM 3.2 mmol/L (3.5-5.1)
[2018-09-12 12:04] VITALS: BP 196/97
[2018-09-12 16:45] VITALS: BP 174/64
[2018-09-12 20:20] VITALS: BP 140/56
[2018-09-13 04:00] VITALS: BP 200/83
[2018-09-13 04:46] VITALS: BP 200/83
[2018-09-13 05:00] VITALS: BP 175/79
[2018-09-13 07:20] LABS: ABSOLUTE NEUTROPHILS 9.3 thou/uL (1.4-8.2); BASOPHILS 0.7 % (0.0-2.0); EOSINOPHILS 0.3 % (0.0-3.0); HEMATOCRIT 38.9 % (37.0-47.0); LYMPHOCYTES 14.6 % (24.0-44.0); MCH 31.5 pg (26.0-34.0); MCHC 33.4 g/dL (28.0-37.0); MCV 94.1 fL (80.0-100.0); MONOCYTES 7.3 % (1.0-8.0); PLATELET COUNT 402 thou/uL (150-400); POLYS 77.1 % (36.0-66.0); RBC 4.13 mil/uL (4.20-5.00); WBC 12.1 thou/uL (4.0-11.0)
[2018-09-13 07:30] LABS: PROTIME 10.2 Seconds (9.3-11.4)
[2018-09-13 07:35] LABS: ALBUMIN 3.3 g/dL (3.4-5.0); CALCIUM 9.3 mg/dL (8.5-10.1); MAGNESIUM 2.1 mg/dL (1.8-2.4); PHOSPHORUS 3.7 mg/dL (2.5-4.9)
[2018-09-13 07:59] VITALS: BP 146/55
[2018-09-13 15:51] VITALS: BP 145/63
[2018-09-13 19:43] VITALS: BP 137/65
[2018-09-14 04:20] LABS: ABSOLUTE NEUTROPHILS 6.5 thou/uL (1.4-8.2); BASOPHILS 1.1 % (0.0-2.0); EOSINOPHILS 1.6 % (0.0-3.0); HEMATOCRIT 37.8 % (37.0-47.0); HEMOGLOBIN 12.6 gm/dL (12.0-15.0); MCHC 33.3 g/dL (28.0-37.0); PLATELET COUNT 411 thou/uL (150-400); POLYS 65.3 % (36.0-66.0); RBC 3.94 mil/uL (4.20-5.00); RDW 14.9 % (10.5-14.5)
[2018-09-14 04:21] LABS: CALCIUM 8.8 mg/dL (8.5-10.1); CREATININE 1.4 mg/dL (0.6-1.0); POTASSIUM 3.1 mmol/L (3.5-5.1)
[2018-09-14 04:25] VITALS: BP 147/72
[2018-09-14 08:41] VITALS: BP 123/70
[2018-09-14 14:11] VITALS: BP 172/82
[2018-09-14 15:06] LABS: HSV 1 DNA Negative (Negative); HSV 2 DNA Negative (Negative)
[2018-09-14 17:12] VITALS: BP 151/69
[2018-09-14 19:40] VITALS: BP 169/69
[2018-09-15 03:50] LABS: ALBUMIN 3.1 g/dL (3.4-5.0); CALCIUM 8.7 mg/dL (8.5-10.1); CREATININE 1.2 mg/dL (0.6-1.0); MAGNESIUM 1.8 mg/dL (1.8-2.4); POTASSIUM 3.4 mmol/L (3.5-5.1); TOTAL BILIRUBIN 0.5 mg/dL (<0.1-1.0); TOTAL PROTEIN 6.2 g/dL (6.4-8.2)
[2018-09-15 04:00] LABS: ABSOLUTE NEUTROPHILS 6.3 thou/uL (1.4-8.2); BASOPHILS 0.7 % (0.0-2.0); HEMATOCRIT 37.3 % (37.0-47.0); HEMOGLOBIN 12.5 gm/dL (12.0-15.0); LYMPHOCYTES 24.3 % (24.0-44.0); MCH 32.3 pg (26.0-34.0); MCHC 33.5 g/dL (28.0-37.0); MCV 96.4 fL (80.0-100.0); MONOCYTES 8.7 % (1.0-8.0); PLATELET COUNT 420 thou/uL (150-400); POLYS 63.3 % (36.0-66.0); RBC 3.87 mil/uL (4.20-5.00); WBC 9.9 thou/uL (4.0-11.0)
[2018-09-15 04:39] VITALS: BP 200/85
[2018-09-15 08:07] VITALS: BP 156/52
[2018-09-15 16:52] VITALS: BP 141/66
[2018-09-15 19:36] VITALS: BP 141/68
[2018-09-16 03:05] LABS: ABSOLUTE NEUTROPHILS 5.1 thou/uL (1.4-8.2); BASOPHILS 0.9 % (0.0-2.0); EOSINOPHILS 3.9 % (0.0-3.0); HEMATOCRIT 38.9 % (37.0-47.0); HEMOGLOBIN 12.8 gm/dL (12.0-15.0); LYMPHOCYTES 25.3 % (24.0-44.0); MCH 31.6 pg (26.0-34.0); MCHC 32.8 g/dL (28.0-37.0); MCV 96.2 fL (80.0-100.0); MONOCYTES 9.2 % (1.0-8.0); PLATELET COUNT 421 thou/uL (150-400); POLYS 60.7 % (36.0-66.0); RBC 4.05 mil/uL (4.20-5.00); RDW 15.1 % (10.5-14.5); WBC 8.3 thou/uL (4.0-11.0)
[2018-09-16 03:11] LABS: ALBUMIN 3.1 g/dL (3.4-5.0); CALCIUM 8.7 mg/dL (8.5-10.1); CREATININE 1.1 mg/dL (0.6-1.0); MAGNESIUM 2.2 mg/dL (1.8-2.4); TOTAL BILIRUBIN 0.5 mg/dL (<0.1-1.0); TOTAL PROTEIN 6.2 g/dL (6.4-8.2)
[2018-09-16 03:21] LABS: POTASSIUM 4.4 mmol/L (3.5-5.1)
[2018-09-16 04:43] VITALS: BP 156/57
[2018-09-16 07:31] VITALS: BP 175/73
[2018-09-16 11:31] VITALS: BP 123/52
[2018-09-16] MEDS ORDERED: B-12500 MCG PO (12:22)
[2018-09-16] MEDS ORDERED: AMOXICILLIN875 MG PO (12:24)
[2018-09-16 15:23] VITALS: BP 154/68
== END 2018-09-16 16:30 | DRG 871 ==
LOC: ER 12:01 → 2N 13:08 → EROBS 13:08 → 2N 14:14
PROVIDERS: Emergency Medicine; Hospitalist
PROC: B01B1ZZ Fluoroscopy of Spinal Cord using Low Osmolar Contrast (ICD-10-PCS; principal; 2018-09-10)
PROC: 009U3ZX Drainage of Spinal Canal, Percutaneous Approach, Diagnostic (ICD-10-PCS; principal; 2018-09-10)
DX: A41.9 Sepsis, unspecified organism (principal); G92 Toxic encephalopathy; E87.1 Hypo-osmolality and hyponatremia; N17.9 Acute kidney failure, unspecified; I67.4 Hypertensive encephalopathy; I13.0 Hypertensive heart and chronic kidney disease with heart failure and stage 1 through stage 4 chronic kidney disease, or unspecified chronic kidney disease; I50.30 Unspecified diastolic (congestive) heart failure; E78.5 Hyperlipidemia, unspecified; E87.6 Hypokalemia; M81.0 Age-related osteoporosis without current pathological fracture; E83.42 Hypomagnesemia; E87.8 Other disorders of electrolyte and fluid balance, not elsewhere classified; E86.0 Dehydration; N30.90 Cystitis, unspecified without hematuria; B96.20 Unspecified Escherichia coli [E. coli] as the cause of diseases classified elsewhere; R45.0 Nervousness; E03.9 Hypothyroidism, unspecified; E53.8 Deficiency of other specified B group vitamins; K31.84 Gastroparesis; N18.9 Chronic kidney disease, unspecified; G43.909 Migraine, unspecified, not intractable, without status migrainosus; I25.10 Atherosclerotic heart disease of native coronary artery without angina pectoris; K21.9 Gastro-esophageal reflux disease without esophagitis; J45.909 Unspecified asthma, uncomplicated; E78.00 Pure hypercholesterolemia, unspecified; Z96.653 Presence of artificial knee joint, bilateral; M19.90 Unspecified osteoarthritis, unspecified site; Z90.49 Acquired absence of other specified parts of digestive tract; Z95.5 Presence of coronary angioplasty implant and graft; Z79.82 Long term (current) use of aspirin; Z79.899 Other long term (current) drug therapy; Z88.2 Allergy status to sulfonamides; Z88.0 Allergy status to penicillin; Z88.8 Allergy status to other drugs, medicaments and biological substances
CPT/HCPCS: 10081

== ENCOUNTER 2018-11-08 17:35 | Inpatient (IN) | payer OTHER ==
[~2018-11-08] VITALS: Ht 160 cm; Wt 68.0 kg
--- NOTE | ~2018-11-08 | EKG ---
[address] [address] ELECTROCARDIOGRAM REPORT Name: WILLIAN BRIGGS Room #: 458-P ADM IN M.R.#: [id number] Admission: 11/08/18 Attend Phys: Carlos Lozano MD Discharge: Date of : 35 Report #: [id number] THIS REPORT FOR: //name// [facility] ED Test Date: 2018-11-08 Test Time: 17:56:43 Pat Name: WILLIAN BRIGGS Department: Room: 458 Gender: F Die Forger: LUIZ : 1935 Requested By: Don Gatica Order Number: [id number] MD: Mike Ruiz Measurements Intervals [place] Rate: 108 P: 77 MT: 148 QRS: 48 QRSD: 82 T: 69 QT: 329 QTc: 441 Interpretive Statements Sinus tachycardia Atrial premature complexes in couplets Compared to ECG 09/10/2018 12:12:59 Sinus tachycardia has replaced ectopic atrial tachycardia Electronically Signed On 11-09-2018 10:38:05 MOTIVATIONAL SPEAKER by Mike Ruiz [email or web address] <ELECTRONICALLY SIGNED> By: Mike Ruiz MD, [facility] 11/09/18 1038 175 55 Mike Ruiz MD, [facility] /EPI
[~2018-11-08 17:35] MED LIST changes: +AMOXICILLIN875 MG PO; +B-12500 MCG PO; +SYNTHROID100 MC1 PO; +ZAROXOLYN 5MG TA5 MG PO
[2018-11-08 17:37] VITALS: BP 194/120
[2018-11-08 18:07] LABS: ABSOLUTE NEUTROPHILS 9.2 thou/uL (1.4-8.2); BASOPHILS 0.9 % (0.0-2.0); EOSINOPHILS 0.1 % (0.0-3.0); HEMATOCRIT 44.8 % (37.0-47.0); HEMOGLOBIN 15.2 gm/dL (12.0-15.0); LYMPHOCYTES 24.6 % (24.0-44.0); MCH 32.2 pg (26.0-34.0); MCHC 33.9 g/dL (28.0-37.0); MCV 95.1 fL (80.0-100.0); MONOCYTES 6.2 % (1.0-8.0); PLATELET COUNT 574 thou/uL (150-400); POLYS 68.2 % (36.0-66.0); RBC 4.71 mil/uL (4.20-5.00); RDW 14.6 % (10.5-14.5); WBC 13.5 thou/uL (4.0-11.0)
[2018-11-08 18:12] LABS: ANION GAP 10 mmol/L (7-16); BUN 25 mg/dL (7-18); CALCIUM 9.8 mg/dL (8.5-10.1); CHLORIDE 98 mmol/L (98-107); CO2 25 mmol/L (21-32); CREATININE 1.4 mg/dL (0.6-1.0); GLUCOSE 177 mg/dL (74-106); POTASSIUM 4.7 mmol/L (3.5-5.1); SODIUM 133 mmol/L (136-145)
[2018-11-08 18:21] LABS: LIPASE 38 U/L (73-393); SGOT 27 U/L (15-37); SGPT 28 U/L (30-65); TOTAL BILIRUBIN 0.8 mg/dL (<0.1-1.0); TOTAL PROTEIN 7.7 g/dL (6.4-8.2); TROPONIN-I <0.06 ng/mL (<0.06)
[2018-11-08 18:53] LABS: URINE BILIRUBIN NEGATIVE (Negative); URINE BLOOD 1+ (Negative); URINE CLARITY CLOUDY; URINE COLOR YELLOW; URINE GLUCOSE-RANDOM* NEGATIVE (Negative); URINE KETONES 2+ (Negative); URINE PROTEIN (DIPSTICK) NEGATIVE (Negative); URINE SPECIFIC GRAVITY >= 1.030 (1.005-1.035); URINE UROBILINOGEN 0.2 E.U./dl (0.2-1.0)
[2018-11-08 18:54] LABS: URINE LEUKOCYTES-REFLEX 2+ (Negative); URINE NITRITE-REFLEX POSITIVE (Negative)
[2018-11-08 18:59] LABS: BACTERIA-REFLEX >30 Many /HPF (None Seen); CASTS None Seen /LPF (None Seen); CRYSTALS None Seen /LPF (None Seen); SQUAMOUS 0-3 Few /LPF (0-3); URINE RBC 0-2 Rare /HPF (0-2); URINE WBC-REFLEX >25 Many /HPF (0-5)
[2018-11-08 19:22] VITALS: BP 152/82
[2018-11-08 19:36] VITALS: BP 152/82
[2018-11-08 20:28] VITALS: BP 179/94
[2018-11-09 03:55] VITALS: BP 214/116
[2018-11-09 05:49] LABS: HEMATOCRIT 43.2 % (37.0-47.0); HEMOGLOBIN 14.5 gm/dL (12.0-15.0); MCH 32.3 pg (26.0-34.0); MCHC 33.5 g/dL (28.0-37.0); MCV 96.6 fL (80.0-100.0); RBC 4.47 mil/uL (4.20-5.00); RDW 14.7 % (10.5-14.5); WBC 13.8 thou/uL (4.0-11.0)
[2018-11-09 05:55] LABS: CALCIUM 9.1 mg/dL (8.5-10.1); CREATININE 1.1 mg/dL (0.6-1.0); POTASSIUM 4.2 mmol/L (3.5-5.1)
[2018-11-09 08:00] VITALS: BP 166/78
[2018-11-09 16:00] VITALS: BP 158/76
[2018-11-09 19:03] VITALS: BP 179/85
[2018-11-09 23:54] VITALS: BP 148/57
[2018-11-10 04:19] LABS: CALCIUM 8.4 mg/dL (8.5-10.1); MAGNESIUM 1.7 mg/dL (1.8-2.4); POTASSIUM 3.8 mmol/L (3.5-5.1)
[2018-11-10 04:21] VITALS: BP 166/68
[2018-11-10 04:39] LABS: ABSOLUTE NEUTROPHILS 4.3 thou/uL (1.4-8.2); BASOPHILS 0.5 % (0.0-2.0); EOSINOPHILS 2.3 % (0.0-3.0); HEMATOCRIT 34.4 % (37.0-47.0); LYMPHOCYTES 31.4 % (24.0-44.0); MCH 32.5 pg (26.0-34.0); MCHC 33.6 g/dL (28.0-37.0); MCV 96.5 fL (80.0-100.0); MONOCYTES 10.5 % (1.0-8.0); POLYS 55.3 % (36.0-66.0); RBC 3.57 mil/uL (4.20-5.00); RDW 14.8 % (10.5-14.5); WBC 7.8 thou/uL (4.0-11.0)
[2018-11-10 05:14] LABS: HEMOGLOBIN 11.6 gm/dL (12.0-15.0); PLATELET COUNT 355 thou/uL (150-400)
[2018-11-10 07:20] VITALS: BP 168/78
[2018-11-10 14:36] VITALS: BP 158/60
[2018-11-10 19:28] VITALS: BP 168/70
[2018-11-11 04:37] VITALS: BP 179/69
[2018-11-11 07:30] VITALS: BP 164/71
[2018-11-11] MEDS ORDERED: CEFUROXIME250 MG PO (10:01)
[2018-11-11 12:04] VITALS: BP 164/71
== END 2018-11-11 14:22 | disposition home or self-care (01) | DRG 871 ==
LOC: ER 17:35 → EROBS 19:10 → 4W 19:10 → ENTRNSPT 11-11 14:04 → EDTRNSPTSTS 11-11 14:09 → 4W 11-11 14:22
PROVIDERS: Internal Medicine; Nurse Practitioner Acute Care; Physician Assistant
DX: A41.9 Sepsis, unspecified organism (principal); N17.0 Acute kidney failure with tubular necrosis; N39.0 Urinary tract infection, site not specified; F11.20 Opioid dependence, uncomplicated; I10 Essential (primary) hypertension; E78.5 Hyperlipidemia, unspecified; J45.909 Unspecified asthma, uncomplicated; K21.9 Gastro-esophageal reflux disease without esophagitis; E78.00 Pure hypercholesterolemia, unspecified; I16.0 Hypertensive urgency; B96.20 Unspecified Escherichia coli [E. coli] as the cause of diseases classified elsewhere; G89.29 Other chronic pain; M54.5 Low back pain; G89.4 Chronic pain syndrome; M19.90 Unspecified osteoarthritis, unspecified site; Z96.653 Presence of artificial knee joint, bilateral; Z90.49 Acquired absence of other specified parts of digestive tract; Z90.710 Acquired absence of both cervix and uterus; Z95.5 Presence of coronary angioplasty implant and graft; Z79.82 Long term (current) use of aspirin; Z79.899 Other long term (current) drug therapy; Z88.2 Allergy status to sulfonamides; Z88.8 Allergy status to other drugs, medicaments and biological substances
CPT/HCPCS: 10045

== ENCOUNTER 2019-01-20 20:45 | Inpatient (IN) | payer OTHER ==
[~2019-01-20] VITALS: Ht 170.2 cm; Wt 81.6 kg
[~2019-01-20 20:45] MED LIST changes: +CEFUROXIME250 MG PO
[2019-01-20 20:46] VITALS: BP 126/73
--- NOTE | 2019-01-20 21:15 | NUR ---
ATTEMPTED TO GET IV 2 TIMES WITHOUT SUCCESS. NOTIFIED CHARGE NURSE.
[2019-01-20 21:47] LABS: URINE BILIRUBIN NEGATIVE (Negative); URINE BLOOD 3+ (Negative); URINE CLARITY SL CLOUDY; URINE COLOR YELLOW; URINE GLUCOSE-RANDOM* NEGATIVE (Negative); URINE KETONES 1+ (Negative); URINE NITRITE-REFLEX NEGATIVE (Negative); URINE PROTEIN (DIPSTICK) TRACE (Negative); URINE SPECIFIC GRAVITY 1.025 (1.005-1.035); URINE UROBILINOGEN 0.2 E.U./dl (0.2-1.0)
[2019-01-20 21:48] LABS: URINE LEUKOCYTES-REFLEX 1+ (Negative)
[2019-01-20 21:54] LABS: BACTERIA-REFLEX >30 Many /HPF (None Seen); CASTS None Seen /LPF (None Seen); CRYSTALS None Seen /LPF (None Seen); SQUAMOUS 4-10 Moderate /LPF (0-3); URINE WBC-REFLEX >25 Many /HPF (0-5)
[2019-01-20 21:55] LABS: URINE RBC 3-10 Few /HPF (0-2)
[2019-01-20 23:03] LABS: MCV 94.7 fL (80.0-100.0)
[2019-01-20 23:05] LABS: ABSOLUTE NEUTROPHILS 16.6 thou/uL (1.4-8.2); BASOPHILS 0.5 % (0.0-2.0); EOSINOPHILS 0.2 % (0.0-3.0); HEMATOCRIT 48.1 % (37.0-47.0); HEMOGLOBIN 16.3 gm/dL (12.0-15.0); LYMPHOCYTES 10.2 % (24.0-44.0); MCH 32.1 pg (26.0-34.0); MCHC 33.9 g/dL (28.0-37.0); MONOCYTES 5.5 % (1.0-8.0); PLATELET COUNT 580 thou/uL (150-400); POLYS 83.6 % (36.0-66.0); RBC 5.08 mil/uL (4.20-5.00); RDW 14.6 % (10.5-14.5); WBC 19.9 thou/uL (4.0-11.0)
[2019-01-20 23:13] LABS: CALCIUM 10.3 mg/dL (8.5-10.1); CREATININE 1.7 mg/dL (0.6-1.0); POTASSIUM 4.4 mmol/L (3.5-5.1)
[2019-01-20 23:19] LABS: ALBUMIN 3.8 g/dL (3.4-5.0); TOTAL BILIRUBIN 0.8 mg/dL (<0.1-1.0); TOTAL PROTEIN 7.3 g/dL (6.4-8.2)
[2019-01-20] MEDS ORDERED: MOBIC7.5 MG PO (23:21)
[2019-01-20] MEDS ORDERED: ONDANSETRON ODT8 MG PO (23:22)
[2019-01-20] MEDS ORDERED: DULCOLAX5 MG PO (23:23)
--- NOTE | 2019-01-21 09:47 | EKG ---
[address] [address] ELECTROCARDIOGRAM REPORT Name: WILLIAN BRIGGS Room #: 170-11 ADM IN M.R.#: [id number] ������������������ Admission: 01/21/19 ������������������ Attend Phys: Manpreet Juarez MD Discharge: ������������������ Date of : 35 Report #: [id number] ����������������������������������������������������������������� [id number] THIS REPORT FOR: //name// [facility] ED Test Date: 2019-01-20 Test Time: 21:41:29 Pat Name: WILLIAN BRIGGS Department: Room: 170 11 Gender: F Stone Sawyer: : 1935 Requested By: Manpreet Juarez Order Number: [id number] MD: Mike Ruiz Measurements Intervals [place] Rate: 130 P: 59 [place]: 147 QRS: 62 QRSD: 82 T: 31 QT: 303 QTc: 446 Interpretive Statements Sinus tachycardia with atrial premature complex Consider right atrial enlargement Compared to ECG 11/08/2018 17:56:43 No significant change was found Electronically Signed On 01-21-2019 9:47:00 RN IMAGING by Mike Ruiz [email or web address] ��������������������������������������������� <ELECTRONICALLY SIGNED> ���������������������������������������� By: Mike Ruiz MD, [facility] ��������������������������������������������� 01/21/19 0947 40 40 Mike Ruiz MD, [facility] /EPI
[2019-01-21 12:00] VITALS: BP 155/82
[2019-01-21 15:53] VITALS: BP 160/82
[2019-01-21 16:52] VITALS: BP 144/78
[2019-01-21 17:27] VITALS: BP 148/75
--- NOTE | 2019-01-21 17:57 | NUR ---
ADMITTED FROM ER UNDER 'S CARE. ADMITTED WITH UTI/SEPSIS/N/V. UPON ADMISSION, DENIES N/V/D. LAST BM WAS LSAT NIGHT. PER PT, PT TOOK LAXATIVES BEFORE THE ONSET OF DIARRHEA. PER PT, DIARRHEA HAS SUBSIDED NOW. LJ INFUSING IVF. SKIN THIN AND WITH RED DOTS ALL OVER EXTREMITIES. R SUPRABUTTOCK MOLD. GENERALIZED EDEMA, WITH MORE ON BUILATERAL ANKELS AND REDNESS INSIDE THE ANKLES. ALSO REDNESS NOTED UNDER PANNUS. MISSING TEETH. PT REQUESTED TO BE DNR. REPORTED TO . TELE ATTACHED. VSS. NO S/S ACUTE DISTRESS NOTED OR REPORTED AT THIS TIME. WILL CONT TO MONITOR FOR ANY CHANGES IN CONDITION.
[2019-01-21 19:07] VITALS: BP 172/93
[2019-01-22 03:25] VITALS: BP 178/89
[2019-01-22 06:28] LABS: CALCIUM 8.5 mg/dL (8.5-10.1); CREATININE 0.8 mg/dL (0.6-1.0); MAGNESIUM 1.7 mg/dL (1.8-2.4)
[2019-01-22 06:29] LABS: POTASSIUM 5.8 mmol/L (3.5-5.1)
[2019-01-22 07:03] LABS: HEMATOCRIT 40.1 % (37.0-47.0); MCHC 33.5 g/dL (28.0-37.0); MCV 95.6 fL (80.0-100.0); RBC 4.2 mil/uL (4.20-5.00); RDW 14.2 % (10.5-14.5); WBC 10.6 thou/uL (4.0-11.0)
[2019-01-22 07:09] LABS: HEMOGLOBIN 13.4 gm/dL (12.0-15.0)
[2019-01-22 07:24] VITALS: BP 157/84
--- NOTE | 2019-01-22 14:00 | NUR ---
cm visited with pt, and daughter at bedside. cm intro to dcp, transition of care, home health and post acute. pt preferrs going by [facility], a & o x [facility], [place] and able to make her needs know " already said i need some rehab, [facility] is ok"/pt and family. noted karla likes to answer for her " i can answer my own question ok, live in house, no stairs, son in law built ramp, use walker, cane, both function and are not broken. have bsc, shower chair, grab bars, cookies and run errands. no longer driving, drives. hh in past as well"/jose. will send referral [facility]. will cont following as needed for dc needs.
[2019-01-22 14:15] VITALS: BP 167/87
--- NOTE | 2019-01-22 14:32 | NUR ---
DISCHARGE PLANNING. ANTICIPATED DISCHARGE TOMORROW. POST ACUTE CARE RECOMMENDED AT DISCHARGE. REFERRAL FAXED TO KATHYA, [facility], FOR DISCHARGE PLACEMENT NEEDS. CALL PLACED TO KATHYA TO NOTIFY OF REFERRAL AND PATIENTS DISCHARGE NEEDS. KATHYA TO REVIEW AND CONTACT CM ONCE COMPLETE. OT ASSESSEMENT NOT AVAILABLE AT THIS TIME. WILL FORWARD TO HER ONCE AVAILABLE. FOLLOWING TO ASSIST.
--- NOTE | 2019-01-22 18:33 | NUR ---
ASSUMED CARE AT 0700. PT A&OX4. PT UP X1 ASSIST TO COMMODE. PT IS IMPROVING BUT REMAINS VERY WEAK WITH ACTIVITY. CM SPENT A LOT OF TIME WITH PT AND AND OTHER FAMILY MEMBER IN ROOM. PT C/O OF CONSTANT BACK PAIN. PAIN DOES NOT GO AWAY WITH PAIN MEDICATION BUT DOES EASE UP AND IS MORE TOLERABLE. PT VERY PLEASANT AND COOPERATIVE.
[2019-01-22 19:21] VITALS: BP 160/81
[2019-01-23 04:34] VITALS: BP 185/89
[2019-01-23 06:52] LABS: FOLIC ACID 14.2 ng/mL (8.6-58.9)
[2019-01-23 07:33] VITALS: BP 181/99
--- NOTE | 2019-01-23 15:53 | NUR ---
EMILY WITH [facility] HAD CALL CALLED AND INDICATED THAT SHE NEEDED MORE DETAILED OT NOTES AND ASKED ABOUT ANTICIAPTED DISCHARGE. SM SPOUSE WITH HER AND INDICATED ANTICIPATED DC TOMORROW Saturday01/24/19. UPDATED OT NOTES WERE ENTERED AND FAXED TO KATHYA AT [facility] FOR HER TO SUBMIT TO EMILY [facility]. SHOULD AUTH BE RECEIVED FOR ADMISSION TOMORROW. CONTACT KATHYA AT FAX ORDERS TO . CHART COPY MADE.
[2019-01-23 16:05] VITALS: BP 172/88
--- NOTE | 2019-01-23 17:00 | NUR ---
PATIENT ALERT AND ORIENTED AND KAKE. PATIENT SAT IN CHAIR MOST OF THE DAY AND VISTORS WERE AT BEDSIDE. PATIENT TRANSFERED TO SENIOR SUITES LATE AFTERNOON.
--- NOTE | 2019-01-23 17:49 | NUR ---
REPORT GIVEN BY NURSE MOSQUEDA. PATIENT ORIENTED AND SETTLED IN ROOM AWAITING DINNER TRAY. PATIENT CURRENTLY LYING IN BED WITH CALL LIGHT WITHIN REACH.
[2019-01-23 19:20] VITALS: BP 206/106
--- NOTE | 2019-01-24 05:42 | NUR ---
ASSUMED CARE OF PATIENT AT 1900. ASSESSMENT COMPLETED AT 2004 AND IS DOCUMENTED. PRN NORCO 7.5 GIVEN FOR C/O RIGHT-SIDED MID BACK PAIN WITH DESIRED EFFECT ACHIEVED. PT UP SEVERAL TIMES THROUGHOUT THE NIGHT TO URINATE. PT TRANSFERRED SELF FROM BED TO BEDSIDE COMMODE WITHOUT INCIDENT. INTERDRY APPLIED TO ABDOMINAL FOLDS D/T ERYTHEMA AND SKIN BREAKDOWN. LEFT-SIDED EJ PATENT WITH NORMAL SALINE RUNNING AT 100 ML/HR. PT CURRENTLY SLEEPING SOUNDLY IN BED IN NO ACUTE DISTRESS. CALL LIGHT WITHIN REACH. BED LOCKED AND IN LOWEST POSITION. WCTM.
--- NOTE | 2019-01-24 06:02 | NUR ---
THIS NURSE AGREES WITH ASSESSMENT AND NOTES FROM MANAGER COSTING ON THIS PATIENT.
[2019-01-24 07:09] LABS: HEMATOCRIT 40.7 % (37.0-47.0); HEMOGLOBIN 13.5 gm/dL (12.0-15.0); MCH 31.9 pg (26.0-34.0); MCHC 33.1 g/dL (28.0-37.0); MCV 96.3 fL (80.0-100.0); RBC 4.22 mil/uL (4.20-5.00); RDW 14.1 % (10.5-14.5); WBC 9.9 thou/uL (4.0-11.0)
[2019-01-24 07:20] LABS: CALCIUM 8.6 mg/dL (8.5-10.1); CREATININE 0.9 mg/dL (0.6-1.0); POTASSIUM 3.8 mmol/L (3.5-5.1)
[2019-01-24 08:40] VITALS: BP 187/108
--- NOTE | 2019-01-24 08:43 | NUR ---
ASSUMED PT CARE AT 0700. ASSESSMENT COMPLETED AND IS CHARTED. PT IS AWAKE, HARD OF HEARING, ALER/ORIENTED X4. REPORTS BACK PAIN RATED 6/10. HYDROCODONE GIVEN. LEFT EXTERNAL JUGULAR IV ASYMTOMATIC INFUSING NS AT 100 ML/HR. 2+ EDEMA NOTED TO BILATERAL LOWER LEGS. NO NEW CONCERNS OR COMPLAINTS AT THIS TIME. WILL CONTINUE WITH CURRENT CARE.
[2019-01-24 09:45] VITALS: BP 180/93
--- NOTE | 2019-01-24 13:15 | NUR ---
PT DOING WELL THIS SHIFT. NO C/O PAIN OR OTHERWISE. SKIN TO ABDOMINAL FOLD APPEARS REDDENED. WICKING MATERIAL PLACED UNDER FOLDS TO KEEP DRY. WILL CONTINUE TO MONITOR AND CONTINUE CURRENT CARE.
[2019-01-24 19:48] VITALS: BP 186/95
--- NOTE | 2019-01-25 04:58 | NUR ---
ASSUMED CARE OF PATIENT AT 1900. VSS. ASSESSMENT COMPLETED AT 2020 AND IS DOCUMENTED. ABD FOLD CONTINUES TO BE ERYTHEMIC. INTERDRY IN PLACE. NON-PITTING EDEMA NOTED TO BLE. PT UP TO BSC WITH STB ASSIST ONLY. PRN NORCO GIVEN FOR C/O CHRONIC MID BACK PAIN WITH DESIRED EFFECT ACHIEVED. LEFT EXTERNAL JUGULAR IV PATENT AND INFUSING NORMAL SALINE @ 100 ML/HR. CEFTIAXONE INFUSED PER JAN WITHOUT COMPLICATION. PT CURRENTLY SLEEPING SOUNDLY IN BED IN NO ACUTE DISTRESS. CALL LIGHT WITHIN REACH. BED LOCKED AND IN LOWEST POSITION. WCTM.
--- NOTE | 2019-01-25 05:14 | NUR ---
THIS NURSE AGREES WITH ASSESSMENT AND NOTES ON THIS PATIENT FROM TANDEM MILL STICKER.
[2019-01-25 09:33] VITALS: BP 184/97
--- NOTE | 2019-01-25 09:39 | NUR ---
ASSUMED PT CARE AT 0700. ASSESSMENT COMPLETED AND IS CHARTED. VITAL SIGNS STABLE WITH EXCEPTION OF ELEVATED BLOOD PRESSURE. PAIN TO BACK IS RATED 7/10. HYDROCODONE GIVEN. PT IS ALERT/ORIENTED X4. LEFT EXTERNAL JUGULAR IV IS PATENT WITH MINIMAL DRIED BLOOD AT SITE. NO OTHER CONCERNS OR COMPLAINTS AT THIS TIME. WILL CONTINUE WITH CURRENT CARE.
--- NOTE | 2019-01-25 18:17 | NUR ---
PT DOING FAIR THIS SHIFT. PAIN IS CONTROLLED WITH HYDROCODONE BUT PT SLEEPS OFTEN BETWEEN DOSES. PT DOES WAKE TO EAT AND USE RESTROOM. ENCOURAGING PT TO DRINK PLENTY OF FLUIDS IVF HAVE BEEN DISCONTINUED. PT AGREED TO THIS. WILL CONTINUE TO MONITOR.
[2019-01-25 19:28] VITALS: BP 180/90
--- NOTE | 2019-01-25 19:31 | NUR ---
ASSUMED CARE OF PATIENT AT 0715, PATIENT ALERT AND ORIENTED X 4. UP WITH ASSIST X 1. PATIENT ASSISTED TO RECLINER FOR BREAKFAST. PATIENT C/O PAIN X 2 THIS SHIFT, TRAMADOL 50 MG 1 TABLET GIVEN. PATIENT HAS RIGHT FOREARM IV IN PLACE, RECEIVED 1 IV ANTIBIOTIC THIS SHIFT. WOUND CARE DONE TO LEFT LOWER LEG, PATIENT TOLERATED BETTER TODAY. PATIENT C/O SOB WITH ACTIVITY, AFTER BACK TO BED SHE FELT BETTER. PATIENT UP TO BSC THIS AM, BUT ALSO USES BEDPAIN WHEN IN BED. WILL CONTINUE TO MONITOR.
--- NOTE | 2019-01-25 19:34 | NUR ---
THIS NOTE IS FROM CARE 01/24/19, ASSUMED CARE OF PATIENT AT 0715, PATIENT C/O PAIN WITH LEFT LOWER LEG, ALSO MID-BACK, LIDOCAINE PATCH APPLED IN AM. PATIENT HAD IV LEFT FOREARM, RECEIVING 2 IV ANTIBIOTICS YESTERDAY. WOUND CARE DONE TO LEFT LEG, PAINFUL DURING DRESSING CHANGE. PATIENT NEEDS ASSIST WITH MEALS, BUT FEEDS HERSELF W/O ANY PROBLEMS. DR PARKER SAW PATIENT IN AM, AND STARTED ON GABAPENTIN DUE TO INCREASED PAIN WHEN UP ON HER LEGS. WILL CONTINUE TO MONITOR.
--- NOTE | 2019-01-26 04:40 | NUR ---
Patient remains A&Ox4; Swallows meds whole w/o difficulty. Remains cont. B&B; needs SBA to BSC only. BPs continue to be elevated; MD aware w/ no new orders, at this time. Remains on IVABT/ecoli in urine; no adverse reactions noted. SL noted to L juggular; infused ABT/flushed w/o difficulty. Patient [place].No c/o pain or discomfort. No s/s of acute distress noted. Patient asleep on bed w/ call light/desired belongings within reach. Po fluids encouraged. Will continue to monitor.
--- NOTE | 2019-01-26 05:18 | NUR ---
THIS NURSE AGREES WITH ASSESSMENT AND CARE OF PATIENT BY PROJECT DESIGN ENGINEER.
[2019-01-26 07:23] VITALS: BP 174/88
[2019-01-26 07:29] LABS: HEMATOCRIT 39.4 % (37.0-47.0); HEMOGLOBIN 13.1 gm/dL (12.0-15.0); MCH 32.1 pg (26.0-34.0); MCHC 33.3 g/dL (28.0-37.0); MCV 96.4 fL (80.0-100.0); RBC 4.09 mil/uL (4.20-5.00); RDW 14.6 % (10.5-14.5); WBC 8.6 thou/uL (4.0-11.0)
[2019-01-26 07:40] LABS: CALCIUM 9.1 mg/dL (8.5-10.1); POTASSIUM 3.6 mmol/L (3.5-5.1)
--- NOTE | 2019-01-26 10:00 | NUR ---
dp sent updates to of [facility], patient is awaiting authorization. CM to follow up.
--- NOTE | 2019-01-26 10:05 | NUR ---
ASSUMED CARE OF PATIENT THIS MORNING. PATIENT IS A&OX4. SHE IS HARD OF HEARING. PATIENT GETS UP WITH STANDBY ASSISTANCE. SHE WAS ASSESSED THIS MORNING, NO ABNORMAL ASSESSMENT FINDINGS. PATIENT RECEIVED HYDROCODONE FOR PAIN THIS MORNING IN HER BACK. PATIENT RATED PAIN 7/10. SHE WALKED WITH PT THIS MORNING. PATIENT HAS A LEFT EXTERNAL JUGULAR IV WHICH IS CURRENTLY SALINE LOCKED. PATIENT WILL BE DISCHARED TO [facility] ONCE INSURANCE AUTHORIZATION GOES THROUGH. SHE IS CURRENTLY SITTING IN CHAIR WITH CHAIR ALARM ON AND CALL LIGHT WITHIN REACH. PATIENT CALLS OUT APPROPRIATELY FOR ASSISTANCE. WILL REASSESS PATIENT FOR PAIN.
--- NOTE | 2019-01-26 16:42 | NUR ---
ON-GOING ASSESSMENT: KHANH SPOKE WITH EMILY FROM [facility] ON THE PHONE REGARDING PATIENTS DISCHARGE PLANNING AND THERAPY. KHANH RECEIVED A CALL BACK FROM EMILY AT [facility] STATING WE HAVE INSURANCE AUTH FOR PATIENT TO GO TO SNF. KHANH NOTIFIED ATTENDING. PLAN IS FOR PATIENT TO DISCHARGE TOMORROW TO SNF ([facility]). KHANH SPOKE WITH LIASON FROM [facility] TO [place]. PLANS TO DISCHARGE TO SNF TOMORROW.
--- NOTE | 2019-01-26 16:45 | NUR ---
RECIEVED NOTICE THAT INSURANCE AUTHORIZED POST ACUTE CARE STAY AT [facility]. PHYSICIAN INDICATED THAST PT WILL BE MEDICALLY STABL TO DC THERE TOMORROW. FACILITY NOTIFIED. CM TO FOLLOW TO FACILITATE DISCHARGE TONORROW TO [facility].
[2019-01-26 19:40] VITALS: BP 154/84
--- NOTE | 2019-01-27 05:17 | NUR ---
PATIENT ALERT AND ORIENTED X4. C/O PAIN WITH PARTIAL RELIEF FROM PAIN MED. RESP EVEN BUT BREATH SOUNDS DIMINISHED. UP TO BSC. IV IN LEJ FLUSHES AND DRAWS GOOD. SLEPT OFF AND ON DURING NIGHT.
[2019-01-27 09:11] LABS: HEMOGLOBIN 13.2 gm/dL (12.0-15.0); MCH 32.3 pg (26.0-34.0); RBC 4.11 mil/uL (4.20-5.00); RDW 14.9 % (10.5-14.5); WBC 8.5 thou/uL (4.0-11.0)
[2019-01-27 09:20] LABS: CALCIUM 9.2 mg/dL (8.5-10.1); CREATININE 0.8 mg/dL (0.6-1.0); POTASSIUM 3.8 mmol/L (3.5-5.1)
[2019-01-27 09:30] VITALS: BP 191/101
--- NOTE | 2019-01-27 09:33 | NUR ---
ASSUMED PT CARE AT 0700. PT AWAKE, ALERT/ORIENTED X4. HARD OF HEARING. REPORTS BACK PAIN RATED 6/10 CONTROLLED BY HYDROCODONE. PT REPORTS NO OTHER ISSUES AT THIS TIME. ASSESSMENT IS COMPLETED AND IS CHARTED. VITAL SIGNS STABLE WITH EXCEPTION OF BLOOD PRESSURE ELEVATED AT 191/101. BLOOD PRESSURE MEDICATION GIVEN. WILL CONTINUE WITH CURRENT CARE.
--- NOTE | 2019-01-27 10:36 | NUR ---
on-going assessment: KHANH SPOKE WITH LIAABRIL RASHEED FROM [facility] STATING THEY HAVE AUTH AND CAN ACCEPT PATIENT FOR ADMISSION TODAY AND HAVE ARRANGED FOR A WHEELCHAIR VAN TO PICK HER UP AT 1400. CM NOTIFIED ATTENDING. CM NOTIFIED CHECKER/STOCKER WHO WILL ASSIST IN FAXING D/C PAPERWORK TO FACILITY. CM ORDERED CHART COPY. CM NOTIFIED BEDSIDE OF THE NUMBER FOR REPORT.
[2019-01-27] MEDS ORDERED: KEFLEX500 M1 PO (12:27)
--- NOTE | 2019-01-27 14:16 | NUR ---
DISMISSED PT IN STABLE CONDITION TO SNF FACILITY VIA TRANSPORTATION SERVICES IN WHEELCHAIR. REPORTS CALLED TO [facility].
== END 2019-01-27 14:29 | DRG 871 ==
LOC: ER 20:45 → EROBS 01-21 00:12 → SICU 01-21 00:12 → 4W 01-21 00:12 → EROBS 01-21 10:34 → 4W 01-21 16:45 → SICU 01-23 17:40
PROVIDERS: Emergency Medicine; Hospitalist; Nurse Practitioner Acute Care; Nurse Practitioner Family; ADMIT Internal Medicine
DX: A41.9 Sepsis, unspecified organism (principal); N17.0 Acute kidney failure with tubular necrosis; N39.0 Urinary tract infection, site not specified; E78.00 Pure hypercholesterolemia, unspecified; J45.909 Unspecified asthma, uncomplicated; I10 Essential (primary) hypertension; K21.9 Gastro-esophageal reflux disease without esophagitis; R65.20 Severe sepsis without septic shock; R00.0 Tachycardia, unspecified; E03.9 Hypothyroidism, unspecified; M62.84 Sarcopenia; G89.4 Chronic pain syndrome; F32.9 Major depressive disorder, single episode, unspecified; M19.90 Unspecified osteoarthritis, unspecified site; Z96.653 Presence of artificial knee joint, bilateral; Z90.49 Acquired absence of other specified parts of digestive tract; Z88.1 Allergy status to other antibiotic agents; Z88.2 Allergy status to sulfonamides; Z88.8 Allergy status to other drugs, medicaments and biological substances; Z82.49 Family history of ischemic heart disease and other diseases of the circulatory system; Z79.82 Long term (current) use of aspirin; Z79.899 Other long term (current) drug therapy
CPT/HCPCS: 10045; 15002

== ENCOUNTER 2020-01-04 13:54 | Emergency (ER) | payer OTHER ==
[~2020-01-04] VITALS: Ht 170.2 cm; Wt 81.7 kg
[~2020-01-04 13:54] MED LIST changes: +DULCOLAX5 MG PO; +KEFLEX500 M1 PO; +ONDANSETRON ODT8 MG PO
[2020-01-04 16:45] VITALS: BP 137/84
== END 2020-01-04 16:45 | disposition home or self-care (01) ==
LOC: ER 13:54
DX: M54.41 Lumbago with sciatica, right side (principal); I10 Essential (primary) hypertension; E78.00 Pure hypercholesterolemia, unspecified; J45.909 Unspecified asthma, uncomplicated; K21.9 Gastro-esophageal reflux disease without esophagitis; M19.90 Unspecified osteoarthritis, unspecified site; Z90.49 Acquired absence of other specified parts of digestive tract; Z96.653 Presence of artificial knee joint, bilateral; Z95.5 Presence of coronary angioplasty implant and graft; Z88.1 Allergy status to other antibiotic agents; Z88.2 Allergy status to sulfonamides; Z88.8 Allergy status to other drugs, medicaments and biological substances

== ENCOUNTER 2020-05-09 13:07 | Inpatient (IN) | payer OTHER ==
[~2020-05-09] VITALS: Ht 170.2 cm; Wt 79.8 kg
[2020-05-09 13:08] VITALS: BP 131/74
[2020-05-09 16:07] LABS: ABSOLUTE NEUTROPHILS 10.3 thou/uL (1.4-8.2); BASOPHILS 0.5 % (0.0-2.0); EOSINOPHILS 0.2 % (0.0-3.0); HEMATOCRIT 44.4 % (37.0-47.0); HEMOGLOBIN 15.5 gm/dL (12.0-15.0); LYMPHOCYTES 17.8 % (24.0-44.0); MCH 34.7 pg (26.0-34.0); MONOCYTES 5.9 % (1.0-8.0); PLATELET COUNT 596 thou/uL (150-400); POLYS 75.6 % (36.0-66.0); RBC 4.48 mil/uL (4.20-5.00); RDW 13.5 % (10.5-14.5); WBC 13.6 thou/uL (4.0-11.0)
[2020-05-09 16:18] LABS: ANION GAP 10 mmol/L (7-16); BUN 41 mg/dL (7-18); CALCIUM 9.6 mg/dL (8.5-10.1); CHLORIDE 95 mmol/L (98-107); CO2 26 mmol/L (21-32); CREATININE 1.6 mg/dL (0.6-1.0); GLUCOSE 132 mg/dL (74-106); POTASSIUM 5.1 mmol/L (3.5-5.1); SODIUM 131 mmol/L (136-145)
[2020-05-09 16:27] LABS: LIPASE 38 U/L (73-393); SGOT 53 U/L (15-37); SGPT 105 U/L (30-65); TOTAL BILIRUBIN 0.7 mg/dL (0.2-1.0); TOTAL PROTEIN 7.3 g/dL (6.4-8.2); TROPONIN-I <0.06 ng/mL (<0.06)
[2020-05-09 20:51] VITALS: BP 148/64
[2020-05-09 20:59] VITALS: BP 148/64
[2020-05-09 21:15] VITALS: BP 156/46
[2020-05-10 06:08] LABS: MCH 32.4 pg (26.0-34.0); MCHC 32.1 g/dL (28.0-37.0); MCV 100.7 fL (80.0-100.0); RBC 3.97 mil/uL (4.20-5.00); RDW 13.4 % (10.5-14.5); WBC 11.7 thou/uL (4.0-11.0)
[2020-05-10 06:17] LABS: CALCIUM 8.8 mg/dL (8.5-10.1); CREATININE 1.4 mg/dL (0.6-1.0); POTASSIUM 4.2 mmol/L (3.5-5.1)
[2020-05-10 06:19] LABS: HEMOGLOBIN 12.9 gm/dL (12.0-15.0)
--- NOTE | 2020-05-10 08:44 | EKG ---
[facility] [place] [address] ELECTROCARDIOGRAM REPORT Name: WILLIAN BRIGGS Room #: 461-P ADM IN M.R.#: [id number] Admission: 05/09/20 Attend Phys: Anat Wright MD Discharge: Date of : 35 Report #: [id number] THIS REPORT FOR: cc: Yoni Geiger David J. DO Lundgren, Craig H. MD [facility] ~ THIS REPORT FOR: //name// [facility] ED Test Date: 2020-05-09 Test Time: 16:24:08 Pat Name: WILLIAN BRIGGS Department: Room: 46 Gender: F Sack Lifter: avery : 1935 Requested By: Miki Quiroga Order Number: [id number] MD: Mike Ruiz Measurements Intervals [place] Rate: 96 P: 68 [place]: 155 QRS: 54 QRSD: 81 T: 72 QT: 340 QTc: 430 Interpretive Statements Sinus rhythm No significant abnormality Compared to ECG 01/20/2019 21:41:29 Sinus tachycardia no longer present Atrial premature complex(es) no longer present Electronically Signed On 05-10-2020 8:43:25 CDT by Mike Ruiz [email or web address] <ELECTRONICALLY SIGNED> By: Mike Ruiz MD, [facility] 05/10/20 0843 1624 1624 Mike Ruiz MD, [facility] /EPI
[2020-05-10 09:15] VITALS: BP 151/79
[2020-05-10 13:27] LABS: URINE BLOOD 3+ (Negative); URINE CLARITY CLOUDY; URINE COLOR YELLOW; URINE GLUCOSE-RANDOM* NEGATIVE (Negative); URINE KETONES 1+ (Negative); URINE NITRITE-REFLEX NEGATIVE (Negative); URINE PROTEIN (DIPSTICK) 2+ (Negative); URINE UROBILINOGEN 0.2 E.U./dl (0.2-1.0)
[2020-05-10 13:28] LABS: URINE LEUKOCYTES-REFLEX 3+ (Negative)
[2020-05-10 13:29] LABS: ICTOTEST (BILI CONFIRMATORY) Negative (Negative); URINE BILIRUBIN NEGATIVE (Negative)
[2020-05-10 13:37] LABS: BACTERIA-REFLEX >30 Many /HPF (None Seen); CASTS None Seen /LPF (None Seen); CRYSTALS None Seen /LPF (None Seen); SQUAMOUS 4-10 Moderate /LPF (0-3); URINE WBC-REFLEX >25 Many /HPF (0-5)
[2020-05-10 13:38] LABS: URINE RBC 0-2 Rare /HPF (0-2)
[2020-05-10 16:43] VITALS: BP 160/67
[2020-05-10 20:03] VITALS: BP 130/58
[2020-05-11 04:51] VITALS: BP 182/84
[2020-05-11 07:42] VITALS: BP 175/75
[2020-05-11 15:10] VITALS: BP 168/65
[2020-05-11 19:10] VITALS: BP 174/81
[2020-05-11 21:15] VITALS: BP 164/72
[2020-05-12] VITALS (7 sets, daily range): BP systolic 131–232; BP diastolic 70–118
[2020-05-12 05:30] LABS: HEMATOCRIT 40.5 % (37.0-47.0); HEMOGLOBIN 13.2 gm/dL (12.0-15.0); MCH 32.7 pg (26.0-34.0); MCHC 32.6 g/dL (28.0-37.0); MCV 100.3 fL (80.0-100.0); RBC 4.04 mil/uL (4.20-5.00); RDW 13.8 % (10.5-14.5); WBC 10.3 thou/uL (4.0-11.0)
[2020-05-12 06:00] LABS: ALBUMIN 3.3 g/dL (3.4-5.0); CALCIUM 8.7 mg/dL (8.5-10.1); CREATININE 1.1 mg/dL (0.6-1.0); POTASSIUM 3.9 mmol/L (3.5-5.1); TOTAL BILIRUBIN 0.3 mg/dL (0.2-1.0)
[2020-05-12] MEDS ORDERED: LIDOPATCH1 EACH TRANSDERM (14:13)
[2020-05-12] MEDS ORDERED: PANTOPRAZOLE SO40 M1 PO (14:13)
[2020-05-12] MEDS ORDERED: HYDROCODON-ACE1 EAC7 PO (14:13)
[2020-05-12] MEDS ORDERED: METOPROLOL SUCC50 MG PO (14:13)
[2020-05-12] MEDS ORDERED: KEFLEX500 M1 PO (15:22)
[2020-05-13 05:10] VITALS: BP 115/76
[2020-05-13 07:53] VITALS: BP 138/80
--- NOTE | 2020-05-13 08:29 | P ---
[facility] [place] [address] PROCEDURE REPORT Name: WILLIAN BRIGGS Room #: 461-P [facility] IN M.R.#: [id number] Admission: 05/09/20 Attend Phys: Anat Wright MD Discharge: Date of : 35 Report #: [id number] THIS REPORT FOR: cc: Yoni Geiger David J. DO Thesing, John A. MD ~ CC: Anat Geiger DO BRIEF HISTORY: The patient is an 84-year-old woman who was admitted to [facility] with nausea, vomiting, abdominal pain. She has a prior history of ulcer disease and gastritis. She apparently stopped taking her PPI several weeks ago. She does take an aspirin daily. Meloxicam is listed on her home medication sheet. PREOPERATIVE DIAGNOSES: Nausea, vomiting, abdominal pain. POSTOPERATIVE DIAGNOSES: 1. Duodenal ulcer, nonbleeding. 2. Duodenal erosions. 3. Moderately severe diffuse gastritis with erosions. MEDICATIONS: Deep sedation with propofol per Anesthesia. SPECIMEN: Biopsies of gastric mucosa, rule out H. pylori. ESTIMATED BLOOD LOSS: 3 mL. PROCEDURE: Esophagogastroduodenoscopy with biopsy. FINDINGS: Prior to propofol sedation, procedure of upper endoscopy was discussed with the patient as well as potential risks and its complications. She indicates she understands and desires to proceed. DESCRIPTION OF PROCEDURE: With the patient in left lateral decubitus position, the Olympus video endoscope was inserted in the cervical esophagus under direct vision without difficulty. Examination of this organ through its entire length revealed normal esophageal mucosa down the squamocolumnar junction. The squamocolumnar junction was inspected and noted to be unremarkable. The scope was advanced into the stomach, which was examined on end view as well as retroflexed views. There was diffuse gastritis which was in a linear configuration and extended from the body into the antrum of the stomach. There were scattered erosions, but no ulcers were seen. There was no blood in the stomach. There was no evidence of outlet obstruction. There were no retained solids or liquids within the stomach. The scope was advanced across the pylorus. Examination of the duodenal bulb revealed about an [address] [facility] [address] [place] [address] PROCEDURE REPORT Name: WILLIAN BRIGGS Room #: 461-P ADM IN M.R.#: [id number] Admission: 05/09/20 Attend Phys: Anat Wright MD Discharge: Date of : 35 Report #: [id number] deep bulbar ulcer in the duodenal bulb. There was surrounding edema. However, it had a symmetrical and benign appearance. There was whitish exudate with some yellowish bilious material. Stigmata of bleeding were not identified. There was no evidence of active bleeding. In addition, scattered erosions were seen in the bulb and the second portion of duodenum. The scope was advanced down in the third portion of the duodenum, which was inspected and noted to be unremarkable. At that point, the scope was slowly withdrawn and careful circumferential views were obtained. Biopsy was obtained of the gastritis to rule out Helicobacter pylori. Scope was withdrawn. The patient tolerated the procedure well. DISPOSITION: The patient with recurrent duodenal ulcer disease. We will discuss further with her use of nonsteroidals. She does take a baby aspirin, but also meloxicam is on her list of medications. We will discuss further with the patient. In addition, since she has had recurrent ulcer disease, we will obtain a fasting gastrin for further evaluation. She may need to stay on a PPI daily on a long-term basis due to her recurrent ulcer disease. <ELECTRONICALLY SIGNED> By: Raman Aponte MD 05/13/20 0829 0934 0951 Raman Aponte MD /nt
[2020-05-13] MEDS ORDERED: AUGMENTIN 500-1 EACH PO (09:43)
[2020-05-13 17:44] VITALS: BP 156/74
--- NOTE | 2020-05-13 18:06 | PATH ---
[facility] [address] [place] [address] PATHOLOGY RPT PROCEDURE Name: WILLIAN BROWN MARCH Room #: 461-P ADM IN M.R.#: [id number] Admission: 05/09/20 Date of : 35 Discharge: Report #: [id number] Path Case #: [id number] [facility] Accession Number: [id number] . 01 Material submitted: . stomach - BX OF GASTRITIS . 01 Clinical history: . Nausea vomiting, history of ulcers Duodenal ulcer, gastritis . 02 Diagnosis: Gastric mucosa, gastritis, endoscopic biopsy: - Moderate reactive gastropathy. - Negative for intestinal metaplasia or atrophy. - Negative for Helicobacter pylori (properly-controlled immunohistochemical stain performed). . (IUV:mml; 05/13/2020) QL 05/13/2020 1437 Local . 02 Electronically signed: . Kaitlin Harris MD, Pathologist NPI- [id number] . 01 Gross description: . The specimen is received in formalin, labeled "Willian Brown, BX of gastritis rule H. pylori" and consists of 2 fragments of pink-mcconnell tissue measuring 0.5 x 0.4 cm and 0.4 x 0.3 cm which are entirely submitted in A1. (SDY; 05/12/2020) SYU/SYU 05/12/2020 1542 Local . 02 Pathologist provided ICD-10: K31.9 . 02 CPT . 820106, [id number] Specimen Comment: A courtesy copy of this report has been sent to [phone], [phone] Specimen Comment: [phone], Specimen Comment: Report sent to ,DR COBOS / DR SANCHEZ Performed at: [address] [id number] MD Margarito Vital MD Phone: [phone] Performed at: [address] [address] PATHOLOGY RPT PROCEDURE Name: WILLIAN BROWN MARCH Room #: 461-P ADM IN M.R.#: [id number] Admission: 05/09/20 Date of : 35 Discharge: Report #: [id number] Path Case #: [id number] [address] [id number] MD Kaitlin Harris MD Phone: [phone]
[2020-05-13 21:06] VITALS: BP 156/68
[2020-05-14 08:12] VITALS: BP 161/82
[2020-05-14 11:04] VITALS: BP 138/69
[2020-05-14 16:17] VITALS: BP 142/79
[2020-05-14 19:36] VITALS: BP 189/78
[2020-05-15 11:39] VITALS: BP 136/58
[2020-05-15 16:02] VITALS: BP 127/55
[2020-05-15 19:30] VITALS: BP 136/66
[2020-05-16] VITALS (7 sets, daily range): BP systolic 134–157; BP diastolic 67–85
[2020-05-17 04:22] VITALS: BP 133/72
[2020-05-17 07:56] VITALS: BP 176/84
[2020-05-17 16:26] VITALS: BP 137/64
[2020-05-17 19:33] VITALS: BP 159/62
[2020-05-18 05:50] VITALS: BP 131/59
[2020-05-18 13:51] VITALS: BP 123/61
[2020-05-18 19:57] VITALS: BP 129/59
[2020-05-19 03:56] VITALS: BP 150/75
[2020-05-19 07:01] VITALS: BP 174/85
[2020-05-19 11:57] VITALS: BP 174/85
[2020-05-19 14:10] VITALS: BP 170/87
== END 2020-05-19 12:45 | disposition home health service (06) | DRG 515 ==
LOC: ER 13:07 → 4W 18:43 → EROBS 18:43 → 4W 21:02
PROVIDERS: Emergency Medicine; Nurse Practitioner; ADMIT Hospitalist; ATTEND Hospitalist
PROC: 0DB68ZX Excision of Stomach, Via Natural or Artificial Opening Endoscopic, Diagnostic (ICD-10-PCS; principal; 2020-05-12)
PROC: 0QU03JZ Supplement Lumbar Vertebra with Synthetic Substitute, Percutaneous Approach (ICD-10-PCS; 2020-05-16)
PROC: 0QS03ZZ Reposition Lumbar Vertebra, Percutaneous Approach (ICD-10-PCS; 2020-05-16)
PROC: BR191ZZ Fluoroscopy of Lumbar Spine using Low Osmolar Contrast (ICD-10-PCS; 2020-05-16)
DX: M48.56XA Collapsed vertebra, not elsewhere classified, lumbar region, initial encounter for fracture (principal); R65.11 Systemic inflammatory response syndrome (SIRS) of non-infectious origin with acute organ dysfunction; N17.0 Acute kidney failure with tubular necrosis; N39.0 Urinary tract infection, site not specified; E87.1 Hypo-osmolality and hyponatremia; K52.9 Noninfective gastroenteritis and colitis, unspecified; B96.1 Klebsiella pneumoniae [K. pneumoniae] as the cause of diseases classified elsewhere; E86.0 Dehydration; E78.00 Pure hypercholesterolemia, unspecified; Z96.653 Presence of artificial knee joint, bilateral; J45.909 Unspecified asthma, uncomplicated; I10 Essential (primary) hypertension; K21.9 Gastro-esophageal reflux disease without esophagitis; M54.9 Dorsalgia, unspecified; K26.9 Duodenal ulcer, unspecified as acute or chronic, without hemorrhage or perforation; E78.5 Hyperlipidemia, unspecified; R74.0 Nonspecific elevation of levels of transaminase and lactic acid dehydrogenase [LDH]; D50.9 Iron deficiency anemia, unspecified; G47.00 Insomnia, unspecified; E55.9 Vitamin D deficiency, unspecified; R63.4 Abnormal weight loss; T36.95XA Adverse effect of unspecified systemic antibiotic, initial encounter; K29.60 Other gastritis without bleeding; G89.4 Chronic pain syndrome; B96.89 Other specified bacterial agents as the cause of diseases classified elsewhere; I95.1 Orthostatic hypotension; Z20.828 Contact with and (suspected) exposure to other viral communicable diseases; Y92.89 Other specified places as the place of occurrence of the external cause; Z90.49 Acquired absence of other specified parts of digestive tract; Z95.5 Presence of coronary angioplasty implant and graft; Z88.1 Allergy status to other antibiotic agents; Z88.2 Allergy status to sulfonamides; Z88.8 Allergy status to other drugs, medicaments and biological substances; Z79.82 Long term (current) use of aspirin; Z79.899 Other long term (current) drug therapy; Z82.49 Family history of ischemic heart disease and other diseases of the circulatory system; Z68.27 Body mass index [BMI] 27.0-27.9, adult
CPT/HCPCS: 10045; 10047; 62110; 62900; 70005

== ENCOUNTER 2020-08-23 19:00 | Inpatient (IN) | payer OTHER ==
[~2020-08-23] VITALS: Ht 170.2 cm; Wt 78.5 kg
[~2020-08-23 19:00] MED LIST changes: +AUGMENTIN 500-1 EACH PO; +HYDROCODON-ACE1 EAC7 PO; +LIDOPATCH1 EACH TRANSDERM; +METOPROLOL SUCC50 MG PO
--- NOTE | 2020-08-23 19:40 | NUR ---
UPDATED PT'S SON, THERON, ON PLAN OF CARE. WILL UPDATE WITH ANY CHANGES.
[2020-08-23 19:46] LABS: URINE BILIRUBIN NEGATIVE (Negative); URINE BLOOD 3+ (Negative); URINE CLARITY CLEAR; URINE COLOR YELLOW; URINE GLUCOSE-RANDOM* NEGATIVE (Negative); URINE KETONES NEGATIVE (Negative); URINE NITRITE-REFLEX NEGATIVE (Negative); URINE PROTEIN (DIPSTICK) 1+ (Negative); URINE SPECIFIC GRAVITY 1.025 (1.005-1.035); URINE UROBILINOGEN 0.2 E.U./dl (0.2-1.0)
[2020-08-23 19:47] LABS: URINE LEUKOCYTES-REFLEX 1+ (Negative)
[2020-08-23 19:49] LABS: BACTERIA-REFLEX 1-9 Few /HPF (None Seen); CRYSTALS None Seen /LPF (None Seen); SQUAMOUS 0-3 Few /LPF (0-3); URINE WBC-REFLEX 6-15 Few /HPF (0-5)
[2020-08-23 19:50] LABS: ABSOLUTE NEUTROPHILS 11.4 thou/uL (1.4-8.2); BASOPHILS 0.7 % (0.0-2.0); EOSINOPHILS 0.5 % (0.0-3.0); HEMATOCRIT 44.6 % (37.0-47.0); LYMPHOCYTES 17.1 % (24.0-44.0); MCHC 33.6 g/dL (28.0-37.0); MCV 98.4 fL (80.0-100.0); MONOCYTES 9.5 % (1.0-8.0); PLATELET COUNT 666 thou/uL (150-400); POLYS 72.2 % (36.0-66.0); RBC 4.53 mil/uL (4.20-5.00); RDW 14.1 % (10.5-14.5); WBC 15.8 thou/uL (4.0-11.0)
[2020-08-23 20:01] LABS: ANION GAP 9 mmol/L (7-16); BUN 41 mg/dL (7-18); CALCIUM 8.9 mg/dL (8.5-10.1); CHLORIDE 98 mmol/L (98-107); CO2 26 mmol/L (21-32); CREATININE 1.6 mg/dL (0.6-1.0); GLUCOSE 139 mg/dL (74-106); POTASSIUM 4.4 mmol/L (3.5-5.1); SODIUM 133 mmol/L (136-145)
[2020-08-23 20:14] LABS: ALBUMIN 3.8 g/dL (3.4-5.0); LIPASE 25 U/L (73-393); SGOT 36 U/L (15-37); SGPT 45 U/L (30-65); TOTAL BILIRUBIN 0.9 mg/dL (0.2-1.0); TOTAL PROTEIN 7.2 g/dL (6.4-8.2); TROPONIN-I <0.06 ng/mL (<0.06)
[2020-08-23 23:24] VITALS: BP 164/88
[2020-08-23] MEDS ORDERED: TOPROL XL50 MG PO (23:29)
[2020-08-23] MEDS ORDERED: MOBIC7.5 MG PO (23:29)
[2020-08-23] MEDS ORDERED: NORCO 10-325 T1 EACH PO (23:29)
[2020-08-23] MEDS ORDERED: ULTRAM50 MG PO (23:30)
[2020-08-23] MEDS ORDERED: CHILDREN'S ASPI81 M1 PO (23:30)
[2020-08-23] MEDS ORDERED: C-500500 MG PO (23:31)
[2020-08-23] MEDS ORDERED: BIOTIN1000 MCG PO (23:31)
[2020-08-23] MEDS ORDERED: B-125000 MC1 PO (23:31)
[2020-08-24 00:30] VITALS: BP 188/94
[2020-08-24 00:39] VITALS: BP 180/91
--- NOTE | 2020-08-24 01:43 | NUR ---
PT ADMITTED FROM HOME THROUGH ED. PT LIVES WITH HER THAT HAS DEMENTIA. GRAND DAUGHTER WITH AT THISTIME. PT IS AOX4 BUT NUNAM IQUA, HEARING AIDES ARE AT HOME. PT PRESENTED WITH WEAKNESS, N/V/D BEING IN BED FOR 4 DAYS. PT DID NOT HAVE LOOSE STOOL IN THE ED. BLE EDEMA, VERY DRY SKIN ON FEET, LUNGS WITH WHEEZES, PT HAS NON PRODUCTIVE COUGH. PT VERBALIZED UNDERSTANDING TO CALL FOR ASSIST FOR BATHROOM, BED ALARM ON. IVF AND ANTIBIOTICS INITIATED. PRN FOR CHRONIC BACK PAIN PROVIDED.
--- NOTE | 2020-08-24 03:46 | NUR ---
PROVIDER AND ORAL AND MAXILLOFACIAL SURGERY RESIDENT AND CHARGE NOTIFIED COVID TEST NEGATIVE RESULTS.
[2020-08-24 05:08] VITALS: BP 147/79
[2020-08-24 06:25] LABS: HEMATOCRIT 39.5 % (37.0-47.0); HEMOGLOBIN 13.2 gm/dL (12.0-15.0); MCH 33.5 pg (26.0-34.0); MCHC 33.5 g/dL (28.0-37.0); MCV 100.1 fL (80.0-100.0); RBC 3.95 mil/uL (4.20-5.00)
[2020-08-24 06:45] LABS: CALCIUM 8.5 mg/dL (8.5-10.1); CREATININE 1.4 mg/dL (0.6-1.0); POTASSIUM 4.7 mmol/L (3.5-5.1)
--- NOTE | 2020-08-24 07:43 | EKG ---
[facility] [place] [address] ELECTROCARDIOGRAM REPORT Name: WILLIAN BRIGGS Room #: 354-P ADM IN M.R.#: [id number] Admission: 08/23/20 Attend Phys: Zachary Salamanca MD Discharge: Date of : 35 Report #: [id number] THIS REPORT FOR: cc: Yoni Geiger David J. DO Lundgren,Mike Ceja MD FAC ~ THIS REPORT FOR: //name// [facility] ED Test Date: 2020-08-23 Test Time: 20:52:16 Pat Name: WILLIAN BRIGGS Department: Room: [facility] Gender: F Grey Goods Examiner: ELBERT : 1935 Requested By: Miki Quiroga Order Number: [id number] MD: Mike Ruiz Measurements Intervals [place] Rate: 95 P: 68 [place]: 146 QRS: 43 QRSD: 78 T: 73 QT: 364 QTc: 458 Interpretive Statements Sinus tachycardia Atrial premature complexes Abnormal R-wave progression, early transition Compared to ECG 05/09/2020 16:24:08 Atrial premature complex(es) now present Electronically Signed On 08-24-2020 7:43:09 CDT by Mike Ruiz [email or web address] <ELECTRONICALLY SIGNED> By: Mike Ruiz MD, [facility] 08/24/20742 51 51 Mike Ruiz MD, [facility] /EPI
[2020-08-24 08:12] VITALS: BP 155/77
--- NOTE | 2020-08-24 12:42 | NUR ---
ASSUMED PATIENT CARE THIS AM AT APPROXIMATELY 0700. PATIENT IS AWAKE ALERT ORIENTED. NO ACUTE DISTRESS. O2 SAT STABLE ON ROOM AIR. COVID TEST RESULTED NEGATIVE AND CALLED [facility] TO MAKE AWARE. D/C ISOLATION ORDERS OBTAINED AND ROOM OBTAINED FOR PATIENT OFF ISO FLOOR. CALLED REPORT TO LORRAINE DEL [facility]LE ON 4W AND UPDATED ON PATIENT PLAN. HANDOFF REPORT GIVEN AND QUESTIONS ANSWERED. INFORMED PATIENT OF TRANSFER ORDERS AND ROOM NUMBER
--- NOTE | 2020-08-24 13:07 | NUR ---
INITIAL ASSESSMENT: Received consult. SW reviewed chart and spoke with nursing and attending physician. Pt was admitted from home due to nausea/vomiting and dehydration. Pt placed in Enhanced Isolation to r/o COVID-19. Pt's test is negative and Enhanced Isolation precautions have been discontinued. GI consulted. Pt may have an EGD. Pt is on IV abx. SW spoke with pt via phone. Introduced role of SW. Pt is alert/orientated x 4. Pt reports she lives at home with her , who has dementia. Pt's granddtr is staying with him while she is in the hospital. Prior to admission, pt was using a walker. Pt also has a cane. Pt had a kyphoplasty in April of this year and has been using the walker since that time. Pt has used [facility] in the past and would be agreeable with using them again if needed. Pt's PCP is Yoni Geiger. SW is following to assist as needed with discharge planning.
[2020-08-24 13:15] VITALS: BP 170/62
--- NOTE | 2020-08-24 14:16 | NUR ---
Pt transfered from 3w to floor at 1315 per wc in stable condition.Reassessment completed.Pt c/o back pain but not yet due for pain med.Repositioned in bed for comfort.Piv fluid restarted. Fall bundle in place and isolation cart ordered.Will contine to monitor.
[2020-08-24 19:58] VITALS: BP 184/85
[2020-08-25] VITALS (8 sets, daily range): BP systolic 130–220; BP diastolic 57–83
--- NOTE | 2020-08-25 03:03 | NUR ---
Assumed pt care at 1900. A/OX4,pt c/o back pain medicated per EMAR with relief reported. Denies N/V on assessment.VSS. Up with AX1 to BSC,stress incontinent noted. Stool sample for cdiff pending collection. Remains on isolation for ESBL/Cdiff. Fall precautions in place,calls approp for help. SCDs applied. Pt has been NPO since midnight for EGD today. Resting quietly eyes closed at this time,will continue to monitor pt.
[2020-08-25 05:54] LABS: HEMOGLOBIN 12.5 gm/dL (12.0-15.0); MCH 32.9 pg (26.0-34.0); MCHC 32.9 g/dL (28.0-37.0); MCV 100.2 fL (80.0-100.0); RBC 3.79 mil/uL (4.20-5.00); RDW 14.1 % (10.5-14.5); WBC 10.3 thou/uL (4.0-11.0)
[2020-08-25] MEDS ORDERED: PROTONIX40 M2 PO (09:11)
--- NOTE | 2020-08-25 12:37 | NUR ---
Pt in bed resting c/o back pain.Hydrocodone po given with sips of water. Bp this afternoon was 220/77 rechecked 20 mintes later and it was 188/73. Dr Patel notified,order noted.Pt kept npo for egd scheduled for 1400 today. Will continue to monitor.
[2020-08-26 07:26] VITALS: BP 160/64
[2020-08-26 08:56] VITALS: BP 167/65
--- NOTE | 2020-08-26 10:14 | P ---
[facility] [place] [address] PROCEDURE REPORT Name: WILLIAN BRIGGS Room #: 460-P [facility] IN M.R.#: [id number] Admission: 08/23/20 Attend Phys: Zachary Salamanca MD Discharge: Date of : 35 Report #: [id number] THIS REPORT FOR: cc: Yoni Geiger David J. DO McElhinney, Christian C. MD ~ CC: Yoni Nugent MD DATE OF SERVICE: 08/25/2020 PROCEDURE PERFORMED: Upper endoscopy with biopsies. HISTORY OF PRESENT ILLNESS: The patient is an 85-year-old female with recent history of nausea and vomiting, noted dark stools as well, some mild mid epigastric abdominal pain at times. She has had a previous history of duodenal ulcers. She has been on meloxicam and NSAIDs in the past, also had been placed on PPI therapy, but not recently been taking this. Hemoglobin is stable with a hemoglobin of 12.5. Plan is for upper endoscopy. DESCRIPTION OF PROCEDURE: The risks and benefits of the procedure were explained to the patient, those risks including but not limited to bleeding, perforation and the risk of sedation. She understood these risks and gave informed consent. Sedation was given using propofol per Anesthesia. Next, using a standard Olympus upper endoscope, the scope was placed in the patient's mouth and advanced under direct vision through the esophagus, stomach and into the second portion of the duodenum. The larynx was normal in appearance. The esophagus was normal throughout. The GE junction was normal. There was a mild gastritis noted in the body and the antrum. Biopsies were obtained to rule out H. pylori, otherwise normal. No evidence of bleeding. In the duodenal bulb, a single 1.5 cm clean white based ulcer was noted. No bleeding. The first and second portions of the duodenum were normal. At this point, the scope was then withdrawn and the procedure terminated. The patient tolerated the procedure well. IMPRESSION: 1. Duodenal bulb ulcer. No active bleeding at this time, but could be etiology of the patient's symptoms. 2. Mild gastritis. 3. Otherwise, normal upper endoscopy. RECOMMENDATIONS: 1. Await biopsy results. 2. Would recommend long-term daily PPI therapy. [address] [address] PROCEDURE REPORT Name: WILLIAN BRIGGS MARCH Room #: 460-P [facility] IN M.R.#: [id number] Admission: 08/23/20 Attend Phys: Zachary Salamanca MD Discharge: Date of : 35 Report #: [id number] Thank you for allowing me to participate in her care. <ELECTRONICALLY SIGNED> By: Ander Hatfield MD 08/26/20 1014 [id number] 1541 Ander Hatfield MD /nt
[2020-08-26 10:44] VITALS: BP 167/65
--- NOTE | 2020-08-26 12:16 | NUR ---
Assumed pt care at 7am.Pt in bed resting without c/o.Assessment completed.vss. Dr Patel here,order noted.Pt tolerated breakfast and po meds given this am. Dc summary completed and reviewed with pt and spouse.Pt called for ride.Piv dc'd with saline lock.at 1220,pt dc home in [place] with .
--- NOTE | 2020-08-29 16:06 | PATH ---
[facility] [address] [place] [address] PATHOLOGY RPT PROCEDURE Name: WILLIAN BROWN Room #: 460-P DIS IN M.R.#: [id number] Admission: 08/23/20 Date of : 35 Discharge: 08/26/20 Report #: [id number] Path Case #: [id number] [facility] Accession Number: [id number] . 01 Material submitted: . stomach - GASTRIC BX . 01 Clinical history: . DUODENAL ULCER, GASTRITIS, R/O H PYLORI . 02 Diagnosis: Gastric mucosa, gastric R/O H. pylori, endoscopic biopsy: - Moderate reactive gastropathy. - Negative for intestinal metaplasia or atrophy. - Negative for Helicobacter pylori (properly controlled immunohistochemical stain performed). (IUV:padmini; 08/29/2020) QMS 08/29/2020 1245 Local . 02 Electronically signed: . Kaitlin Harris MD, Pathologist NPI- [id number] . 01 Gross description: . The specimen is received in formalin, labeled "Willian Brown, gastric biopsy, R/O H. pylori". Received are five segments of pale mcconnell soft tissue ranging in size from 0.3 to 0.5 cm in maximum dimensions. The specimen is submitted entirely in cassette A1. (CAA; 08/26/2020) QAC/QA 08/26/2020 1332 Local . 02 Pathologist provided ICD-10: K31.9 . 02 CPT . 624567, H03393 Specimen Comment: A courtesy copy of this report has been sent to [phone], [phone] Specimen Comment: [phone], Specimen Comment: Report sent to ,DR COBOS / DR RICHTER Performed at: [address] [id number] MD Margarito Vital MD Phone: [phone] Performed at: [address] [id number] [address] [address] PATHOLOGY RPT PROCEDURE Name: WILLIAN BROWN MARCH Room #: 460-P DIS IN M.R.#: [id number] Admission: 08/23/20 Date of : 35 Discharge: 08/26/20 Report #: [id number] Path Case #: [id number] MD Kaitlin Harris MD Phone: [phone]
== END 2020-08-26 12:16 | disposition home or self-care (01) | DRG 872 ==
LOC: ER 19:00 → EROBS 22:57 → 3W 22:57 → 4W 08-24 13:17
PROVIDERS: Emergency Medicine; Hospitalist; Nurse Practitioner Family; ADMIT Hospitalist; ATTEND Hospitalist
PROC: 0DB68ZX Excision of Stomach, Via Natural or Artificial Opening Endoscopic, Diagnostic (ICD-10-PCS; principal; 2020-08-25)
DX: A41.9 Sepsis, unspecified organism (principal); N39.0 Urinary tract infection, site not specified; N17.9 Acute kidney failure, unspecified; K52.9 Noninfective gastroenteritis and colitis, unspecified; K26.9 Duodenal ulcer, unspecified as acute or chronic, without hemorrhage or perforation; Z20.828 Contact with and (suspected) exposure to other viral communicable diseases; E78.00 Pure hypercholesterolemia, unspecified; M19.90 Unspecified osteoarthritis, unspecified site; Z96.653 Presence of artificial knee joint, bilateral; J45.909 Unspecified asthma, uncomplicated; I10 Essential (primary) hypertension; K21.9 Gastro-esophageal reflux disease without esophagitis; E86.0 Dehydration; K29.70 Gastritis, unspecified, without bleeding; G89.29 Other chronic pain; M54.9 Dorsalgia, unspecified; I25.10 Atherosclerotic heart disease of native coronary artery without angina pectoris; E78.5 Hyperlipidemia, unspecified; D47.3 Essential (hemorrhagic) thrombocythemia; E03.9 Hypothyroidism, unspecified; E55.9 Vitamin D deficiency, unspecified; F32.9 Major depressive disorder, single episode, unspecified; Z90.49 Acquired absence of other specified parts of digestive tract; Z95.5 Presence of coronary angioplasty implant and graft; Z88.1 Allergy status to other antibiotic agents; Z88.2 Allergy status to sulfonamides; Z88.8 Allergy status to other drugs, medicaments and biological substances; Z82.49 Family history of ischemic heart disease and other diseases of the circulatory system; Z87.11 Personal history of peptic ulcer disease; Z79.899 Other long term (current) drug therapy
CPT/HCPCS: 10040; 62110; 62900; 70005